=== PATIENT | female | born 1945 | race Caucasian/White ===

== ENCOUNTER 2019-09-23 12:48 | Inpatient (IN) | payer MEDICARE, BC ==
[~2019-09-23] VITALS: Ht 154.9 cm; Wt 55.1 kg
--- NOTE | 2019-09-23 00:20 | NUR ---
Entered patient room and found patient to be unresponsive. with an SPO2 of 80. Rapid response was called. Patient had been using Bipap, but it was not on correctly. RT had been in the room a few minutes earlier to draw ABG's. BIPAP was set to 14/6 at 12 per minute. RT increased to 22/8 at 20 per minute at 35%. SPO2 gradually increased to 91. dentures were removed to facilitate breathing. patient was still unresponsive. John was notified and decision was made to move patient to ICU where intubation occured. No meds were given by the patient's nurse prior to the rapid.
[~2019-09-23 12:48] MED LIST: ALPR0.5T PO; ASCO1TAB5 PO; ESCITALOPRAM OXA5 M1 PO; METO-269 PO; SIMV40TA18 PO
[2019-09-23 13:42] VITALS: BP 177/79
[2019-09-23] MEDS ORDERED: ALBUTEROL SULFATE 2.5 MG/3 ML NEBU. NEB PRN (14:30)
[2019-09-23 15:29] LABS: BASE EXCESS ABG 10 mmol/L (-3-3); HCO3 ABG 41 mmol/L (21-28); PO2 ABG 65 mmHg (65-108); SAT O2 ABG 90 % (92-99)
[2019-09-23 15:36] LABS: FIO2 ABG 32; PCO2 ABG 86 mmHg (35-46)
[2019-09-23 15:54] VITALS: BP 126/79
[2019-09-23] MEDS: ALBUTEROL SULFATE 2.5 MG/3 ML NEBU. NEB SCH ×2 (16:00→19:28)
[2019-09-23 16:20] LABS: BASO % 1 % (0-3); EOS % 0 % (0-3); HEMATOCRIT 47.8 % (36.0-47.0); HEMOGLOBIN 15.4 g/dL (12.0-15.5); LYMPH # 0.7 x10^3/uL (1.0-4.8); LYMPH % 16 % (24-48); MEAN CORPUSCULAR HEMOGLOBIN 30 pg (25-35); MEAN CORPUSCULAR HGB CONC 32 g/dL (31-37); MEAN CORPUSCULAR VOLUME 93 fL (79-100); MONO # 0.6 x10^3/uL (0.0-1.1); MONO % 12 % (0-9); NEUT # 3.2 x10^3/uL (1.8-7.7); NEUT % 71 % (31-73); PLATELET COUNT 134 x10^3/uL (140-400); RED BLOOD COUNT 5.13 x10^6/uL (3.50-5.40); RED CELL DISTRIBUTION WIDTH 15.5 % (11.5-14.5); WHITE BLOOD COUNT 4.5 x10^3/uL (4.0-11.0)
[2019-09-23 16:29] LABS: CALCIUM 8.7 mg/dL (8.5-10.1); CREATININE 0.5 mg/dL (0.6-1.0); GFR 120.6; POTASSIUM 4.3 mmol/L (3.5-5.1)
[2019-09-23] MEDS: methylPREDNISolone SOD SUCC PF 125 MG/2 ML VIAL. IV SCH ×2 (16:30→21:00)
[2019-09-23 16:31] LABS: PROTHROMBIN TIME PATIENT 13.6 SEC (11.7-14.0)
--- NOTE | 2019-09-23 16:31 | PDOC ---
PULMONARY PROGRESS NOTES Vitals Vital Signs Date Time Temp Pulse Resp B/P (MAP) Pulse Ox O2 Delivery O2 Flow Rate FiO2 09/23/19 16:15 95 Nasal Cannula 3.0 09/23/19 15:54 98.3 65 20 126/79 (95) 98.3 Labs Laboratory Tests Test 09/23/19 15:05 09/23/19 16:15 O2 Saturation 90 % (92-99) Arterial Blood pH 7.29 (7.35-7.45) Arterial Blood pCO2 at Patient Temp 86 mmHg (35-46) Arterial Blood pO2 at Patient Temp 65 mmHg (65-108) Arterial Blood HCO3 41 mmol/L (21-28) Arterial Blood Base Excess 10 mmol/L (-3-3) FiO2 32 White Blood Count 4.5 x10^3/uL (4.0-11.0) Red Blood Count 5.13 x10^6/uL (3.50-5.40) Hemoglobin 15.4 g/dL (12.0-15.5) Hematocrit 47.8 % (36.0-47.0) Mean Corpuscular Volume 93 fL (79-100) Mean Corpuscular Hemoglobin 30 pg (25-35) Mean Corpuscular Hemoglobin Concent 32 g/dL (31-37) Red Cell Distribution Width 15.5 % (11.5-14.5) Platelet Count 134 x10^3/uL (140-400) Neutrophils (%) (Auto) 71 % (31-73) Lymphocytes (%) (Auto) 16 % (24-48) Monocytes (%) (Auto) 12 % (0-9) Eosinophils (%) (Auto) 0 % (0-3) Basophils (%) (Auto) 1 % (0-3) Neutrophils # (Auto) 3.2 x10^3/uL (1.8-7.7) Lymphocytes # (Auto) 0.7 x10^3/uL (1.0-4.8) Monocytes # (Auto) 0.6 x10^3/uL (0.0-1.1) Eosinophils # (Auto) 0.0 x10^3/uL (0.0-0.7) Basophils # (Auto) 0.0 x10^3/uL (0.0-0.2) Sodium Level 134 mmol/L (136-145) Potassium Level 4.3 mmol/L (3.5-5.1) Chloride Level 93 mmol/L (98-107) Carbon Dioxide Level 40 mmol/L (21-32) Anion Gap 1 (6-14) Blood Urea Nitrogen 10 mg/dL (7-20) Creatinine 0.5 mg/dL (0.6-1.0) Estimated GFR (Cockcroft-Gault) 120.6 Glucose Level 126 mg/dL (70-99) Calcium Level 8.7 mg/dL (8.5-10.1) Laboratory Tests Test 09/23/19 15:05 09/23/19 16:15 O2 Saturation 90 % (92-99) Arterial Blood pH 7.29 (7.35-7.45) Arterial Blood pCO2 at Patient Temp 86 mmHg (35-46) Arterial Blood pO2 at Patient Temp 65 mmHg (65-108) Arterial Blood HCO3 41 mmol/L (21-28) Arterial Blood Base Excess 10 mmol/L (-3-3) FiO2 32 White Blood Count 4.5 x10^3/uL (4.0-11.0) Red Blood Count 5.13 x10^6/uL (3.50-5.40) Hemoglobin 15.4 g/dL (12.0-15.5) Hematocrit 47.8 % (36.0-47.0) Mean Corpuscular Volume 93 fL (79-100) Mean Corpuscular Hemoglobin 30 pg (25-35) Mean Corpuscular Hemoglobin Concent 32 g/dL (31-37) Red Cell Distribution Width 15.5 % (11.5-14.5) Platelet Count 134 x10^3/uL (140-400) Neutrophils (%) (Auto) 71 % (31-73) Lymphocytes (%) (Auto) 16 % (24-48) Monocytes (%) (Auto) 12 % (0-9) Eosinophils (%) (Auto) 0 % (0-3) Basophils (%) (Auto) 1 % (0-3) Neutrophils # (Auto) 3.2 x10^3/uL (1.8-7.7) Lymphocytes # (Auto) 0.7 x10^3/uL (1.0-4.8) Monocytes # (Auto) 0.6 x10^3/uL (0.0-1.1) Eosinophils # (Auto) 0.0 x10^3/uL (0.0-0.7) Basophils # (Auto) 0.0 x10^3/uL (0.0-0.2) Sodium Level 134 mmol/L (136-145) Potassium Level 4.3 mmol/L (3.5-5.1) Chloride Level 93 mmol/L (98-107) Carbon Dioxide Level 40 mmol/L (21-32) Anion Gap 1 (6-14) Blood Urea Nitrogen 10 mg/dL (7-20) Creatinine 0.5 mg/dL (0.6-1.0) Estimated GFR (Cockcroft-Gault) 120.6 Glucose Level 126 mg/dL (70-99) Calcium Level 8.7 mg/dL (8.5-10.1) Medications Active Scripts Medications Dose Route/Sig Max Daily Dose Days Date Category Xanax (Alprazolam) 0.5 Mg Tablet 1 Tab PO PRN TID PRN 09/10/18 Reported Kya-C 1,000 Mg Tablet (Ascorbate Calcium/Bioflavonoid) 1 Each Tablet 1 Each PO DAILY 09/10/18 Reported Simvastatin 40 Mg Tablet 1 Tab PO QHS 09/10/18 Reported Toprol Xl (Metoprolol Succinate) 50 Mg Tab.er.24h 50 Mg PO BID 09/10/18 Reported Escitalopram Oxalate 5 Mg Tablet 5 Mg PO QHS 09/10/18 Reported Impression . NOTE DICTATED A/C HYPERCAPNEA RESP FAILURE SEE ORDERS MARIAN WHELAN MD Sep 23, 2019 16:31
[2019-09-23 16:34] LABS: D-DIMER 0.33 ug/mlFEU (0.00-0.50)
[2019-09-23] MEDS ORDERED: IOHEXOL 350 MG/ML 100 ML VIAL. ONE (16:52)
[2019-09-23] MEDS ORDERED: IOHEXOL 350 MG/ML 100 ML VIAL. IV ONE (17:00)
[2019-09-23] MEDS ORDERED: CONTRAST GIVEN. MC PRN (17:00)
--- NOTE | 2019-09-23 18:21 | RAD ---
PQRS Compliance Statement: One or more of the following individualized dose reduction techniques were utilized for this examination: 1. Automated exposure control 2. Adjustment of the mA and/or kV according to patient size 3. Use of iterative reconstruction technique CT CHEST WITH CONTRAST, PULMONARY ANGIOGRAM History: Shortness of air, possible emphysema. Comparison: None. Technique: Helical CT of the chest was performed after the administration of 75 cc of Omnipaque 350 intravenous contrast according to PE protocol. Axial and coronal reconstructions were obtained. 3-D MIP images were constructed to better evaluate the pulmonary arteries. Findings: Pulmonary arteries are adequately opacified. There is no evidence of pulmonary embolism. Pulmonary trunk is dilated measuring 3.6 cm. No thoracic aortic dissection. Moderate atherosclerotic calcification of the aorta. There is coronary artery disease. There is probably moderate narrowing at the origin of the left subclavian artery. There is marked thyromegaly. Slight substernal extension. The right thyroid lobe is heterogeneous. There is cardiomegaly, no pericardial effusion. There is no pleural effusion. There are retained secretions or mucous in the trachea and bilateral mainstem bronchi. Left apical calcified granuloma. There is mild centrilobular emphysema. There is a soft tissue density nodule with slightly irregular margins measuring 7 mm in the right upper lobe, image 41. There is consolidation with a few air bronchograms in the posterior right lower lobe. There is basilar right lower lobe peribronchial thickening that is mild. Much smaller consolidation and groundglass opacities are seen in the posterior left lower lobe. Scarring or atelectasis in the inferior lingula is minimal. Small cyst or hemangioma in the right hepatic lobe is noted. A hypodensity in the upper pole the right kidney is incompletely characterized. Degenerative spondylosis of the thoracic spine. Increased AP diameter of the chest. IMPRESSION: 1. There is no CT evidence of pulmonary embolus. 2. Moderate right lower lobe and mild left lower lobe posterior consolidations. Considerations include pneumonia, aspiration, or atelectasis. 3. There is a 7 mm solid nodule in the right upper lobe. This nodule has irregular margins and is suspicious. Recommend CT chest follow-up in 3 months. 4. Pulmonary trunk is dilated suggesting pulmonary arterial hypertension. 5. Marked thyromegaly, suggest outpatient thyroid ultrasound if not previously evaluated. 6. Mild centrilobular emphysema. 7. Cardiomegaly. Electronically signed by: Иван Stapleton MD (09/23/2019 6:09 PM) [facility]
[2019-09-23 18:24] LABS: BARBITURATES NEG (NEG); BENZODIAZEPINES NEG (NEG); CANNABINOIDS NEG (NEG); COCAINE NEG (NEG); METHADONE NEG (NEG); OPIATES NEG (NEG); PHENCYCLIDINE NEG (NEG)
[2019-09-23 18:26] LABS: AMPHETAMINE/METHAMPHETAMINE NEG (NEG)
[2019-09-23 19:14] VITALS: BP 137/66
[2019-09-23] MEDS ORDERED: ESCITALOPRAM OXA5 M1 PO (19:25)
[2019-09-23] MEDS ORDERED: METO100T5 PO (19:25)
[2019-09-23] MEDS ORDERED: VALS1TAB18 PO (19:25)
[2019-09-23] MEDS ORDERED: AMLO5TAB10 PO (19:29)
[2019-09-23] MEDS: CITALOPRAM 20 MG TABLET. PO SCH (21:00)
[2019-09-23] MEDS: ATORVASTATIN CALCIUM 20 MG TABLET PO SCH (21:00)
--- NOTE | 2019-09-23 23:05 | CONS ---
DATE OF CONSULTATION: 09/23/2019 REASON FOR CONSULTATION: The patient seen in pulmonary consultation at the request of Dr. Ritchie for abnormal arterial blood gas revealing a pH of 7.29, PaCO2 of 86, pO2 of 65, pCO2 of 41, currently on 3 liters. HISTORY OF PRESENT ILLNESS: The patient is a 73-year-old that presented to her primary care doctors with increasing shortness of breath over the last month. Her family noted some lethargy, falling asleep easily. She does not wear oxygen at home. She smokes on and off. She claims as no one has ever told that she had COPD. No history of bronchitis. She does not use any metered-dose inhalers. She has a cough, mostly nonproductive. No fever, chills or night sweats. She had an arterial blood gas as indicated above. I was asked to see her in consultation. Chest x-ray was reviewed revealing some vascular congestion and emphysema does also have evidence of hyperinflation. PAST MEDICAL HISTORY: Remarkable for hypertension. No history of diabetes, myocardial infarction or previous COPD. ALLERGIES: IBUPROFEN. SOCIAL HISTORY: She denies any alcohol. She smokes on and off. She denies any xrhr-vjh-djszwcr sleeping aids. FAMILY HISTORY: No family history of lung disorders. REVIEW OF SYSTEMS: CONSTITUTIONAL: No fever or chills. EYES: No change in visual acuity. HEENT: No nasal congestion or sore throat. PULMONARY: As indicated above. CARDIOVASCULAR: No chest pain or pressure. GASTROINTESTINAL: No nausea, vomiting, diarrhea. GENITOURINARY: No dysuria or frequency. MUSCULOSKELETAL: No localized muscle aches or joint pains. SKIN: No new skin rashes. NEUROLOGIC: No headaches, diplopia or blurred vision. PHYSICAL EXAMINATION: VITAL SIGNS: A 73-year-old in no significant respiratory distress. She is awake, alert, following commands. HEENT: Eyes, the sclerae were nonicteric. NECK: Jugular venous distention was not elevated. CHEST: Hyperinflation. BACK: He had some major curvature of the back related to the osteopenia, osteoporosis. LUNGS: Poor airway flow with no wheezes. CARDIOVASCULAR: Regular rate and rhythm with S1, S2, no S3. ABDOMEN: Soft, nontender, nondistended. EXTREMITIES: No clubbing, cyanosis or edema. NEUROLOGICAL: The patient was awake, alert, following commands. A detailed neuro exam was not performed. LABORATORY DATA: Reviewed. White count was normal. Hemoglobin and hematocrit were noted. Arterial blood gases indicated above. IMPRESSION: 1. Icqog-dr-uepxiwq hypercapnic hypoxemic respiratory failure. 2. Acute exacerbation of chronic obstructive pulmonary disease. 3. Mild increased lung markings on chest x-ray compatible with venous congestion. 4. Suspect secondary pulmonary hypertension. 5. Tobacco-dependent. 6. Hypertension. 7. Anxiety. PLAN: I informed the family that her pCO2 is what is causing the patient to be lethargic and confused. I suspect this is related to an acute exacerbation of COPD along with her major thoracic and cervical curvature causing restrictive process leading to hypercapnia. I have noted that her bicarbonate is 41. This is somewhat of a chronic process. She denies taking any kbmt-tne-zwmbbog medications. We will check a urine drug screen. We will attempt BiPAP at bedtime. Dr. Ritchie, I do appreciate the privilege in sharing in patient's care. MARIAN WHELAN MD DR: MARTIN/jean claude JOB#: [id number] / [id number]
[2019-09-23 23:25] VITALS: BP 103/44
[2019-09-23 23:34] LABS: HCO3 ABG 37 mmol/L (21-28); PCO2 ABG 78 mmHg (35-46); PO2 ABG 52 mmHg (65-108)
[2019-09-23 23:35] LABS: SAT O2 ABG 84 % (92-99)
[2019-09-23 23:45] VITALS: BP 172/74
[2019-09-24] VITALS (27 sets, daily range): BP systolic 88–165; BP diastolic 47–73
--- NOTE | 2019-09-24 00:05 | NUR ---
Called to see patient for a rapid response. Nurse found patient to be unresponsive with a Sat of 79%. RT was called and the Bipap was repositioned on the patients face. An ABG was obtained and was only slight better than the one done in the ED earlier in the day. Patient was given a breathing treatment and bipap settings were changed per RT. Dr. Lopez was called and it was decided that if the family wanted her to be a full code then we would intubate her and move her to the ICU. Danya Rodríguez, Nursing Front Edger, called the patients and was told that the family wanted her to be a full code and to intubate her if needed. Patient was moved to the ICU and was intubated by Myke Claudio, the [facility] [employer] pharmacy operations manager. Patient was intubated with a #7 ETT, taped at 24 at the lip. An OG and a parkinson were both inserted. Pt is starting to move a little more but still is not responsive. Family is aware of the situation and will be in to see patient in the morning. Addendum: 09/24/19 at 0248 by SOPHIE TURNER RN Amended: Links added.
--- NOTE | 2019-09-24 00:30 | NUR ---
Patient arrived to room 114 via bed accompanied by 6S RN, ICU CN, RT, and nursing preparation supervisor freezing. Patient transferred to ICU bed and hooked up to ICU monitors. Patient SR on monitor, S1S2 heart tones heard, struggling to breathe with very little air flow heard through lungs, responsive to painful stimuli but not talking at this time, no IV present. Anesthesia paged to come intubate. Patient intubated by LABOR RELATIONS CONSULTANT at 0000 with 100 mg Propofol and 100 mg Succs, ETT 7.0 24 at lip. CXR and KUB orders entered to check placement. OG and parkinson catheter placed. New IV inserted. Versed for sedation. VSS at this time. Daughter updated on patient condition. This RN called 6S to talk with previous RN, 2100 medications not given--will give medications now via OG tube.
[2019-09-24] MEDS: MIDAZOLAM HCL 50 MG in IV NORMAL SALINE 50ML 50 ML IV PRN ×3 (00:37→16:01)
[2019-09-24] MEDS: IV DEXTROSE 5 %-0.45 % NACL 1,000 ML IV SCH ×2 (00:38→11:00)
--- NOTE | 2019-09-24 00:53 | RAD ---
CHEST AP ONLY INDICATION: Intubation. COMPARISON STUDY: 09/23/2019. FINDINGS: Endotracheal tube terminates 4 cm above the joe. Enteric tube terminates in the stomach. Lungs: Hyperextended lung volume. Stable prominent interstitial markings. Pleura: No pleural effusion or pneumothorax. Heart and Mediastinum: Cardiomegaly. Atherosclerotic thoracic aorta. IMPRESSION: 1. Endotracheal tube terminates 4 cm above the joe. Enteric tube terminates in the stomach. 2. Stable prominent interstitial markings. Electronically signed by: Jatinder Al MD (09/24/2019 12:50 AM) [facility]
[2019-09-24 01:32] LABS: BASE EXCESS ABG 7 mmol/L (-3-3); HCO3 ABG 34 mmol/L (21-28); PCO2 ABG 57 mmHg (35-46); PO2 ABG 80 mmHg (65-108); SAT O2 ABG 96 % (92-99)
[2019-09-24] MEDS: CITALOPRAM 20 MG TABLET. PO SCH ×2 (01:34→21:09)
[2019-09-24] MEDS: METOPROLOL SUCC 24HR ER 100 MG TAB.ER.24H. PO SCH ×3 (01:34→21:08)
[2019-09-24] MEDS: ATORVASTATIN CALCIUM 20 MG TABLET PO SCH ×2 (01:34→21:09)
[2019-09-24] MEDS: methylPREDNISolone SOD SUCC PF 125 MG/2 ML VIAL. IV SCH ×3 (01:35→21:08)
[2019-09-24 01:58] LABS: FIO2 ABG 50
[2019-09-24 07:41] LABS: BASO % 0 % (0-3); EOS % 0 % (0-3); HEMATOCRIT 48.8 % (36.0-47.0); HEMOGLOBIN 15.5 g/dL (12.0-15.5); LYMPH # 0.3 x10^3/uL (1.0-4.8); LYMPH % 14 % (24-48); MEAN CORPUSCULAR HEMOGLOBIN 29 pg (25-35); MEAN CORPUSCULAR HGB CONC 32 g/dL (31-37); MEAN CORPUSCULAR VOLUME 92 fL (79-100); MONO # 0.1 x10^3/uL (0.0-1.1); MONO % 5 % (0-9); NEUT # 1.7 x10^3/uL (1.8-7.7); NEUT % 80 % (31-73); PLATELET COUNT 130 x10^3/uL (140-400); RED BLOOD COUNT 5.29 x10^6/uL (3.50-5.40); RED CELL DISTRIBUTION WIDTH 15.6 % (11.5-14.5); WHITE BLOOD COUNT 2.1 x10^3/uL (4.0-11.0)
[2019-09-24 08:00] LABS: CALCIUM 8.8 mg/dL (8.5-10.1); CREATININE 0.5 mg/dL (0.6-1.0); GFR 120.6; POTASSIUM 3.9 mmol/L (3.5-5.1)
[2019-09-24] MEDS: ALBUTEROL SULFATE 2.5 MG/3 ML NEBU. NEB SCH ×4 (08:12→19:52)
[2019-09-24 08:35] LABS: BASE EXCESS ABG 9 mmol/L (-3-3); HCO3 ABG 32 mmol/L (21-28); PCO2 ABG 38 mmHg (35-46); PO2 ABG 93 mmHg (65-108); SAT O2 ABG 98 % (92-99)
--- NOTE | 2019-09-24 08:36 | PDOC ---
PULMONARY PROGRESS NOTES Subjective FAILED BIPAP NOW ON AC MODE VENT SEDATED Vitals Vital Signs Date Time Temp Pulse Resp B/P (MAP) Pulse Ox O2 Delivery O2 Flow Rate FiO2 09/24/19 08:12 99 Ventilator 09/24/19 08:00 97.9 62 20 111/60 (77) 97.9 09/23/19 19:33 3.0 ROS: No Nausea, No Chest Pain, No Abdominal Pain, No Increase Cough General: Alert Lungs: Crackles Cardiovascular: S1, S2 Abdomen: Soft Neuro Exam: Alert Extremities: No Edema Skin: Warm Labs Laboratory Tests Test 09/23/19 15:05 09/23/19 16:15 09/23/19 17:30 09/23/19 22:33 O2 Saturation 90 % (92-99) 84 % (92-99) Arterial Blood pH 7.29 (7.35-7.45) 7.30 (7.35-7.45) Arterial Blood pCO2 at Patient Temp 86 mmHg (35-46) 78 mmHg (35-46) Arterial Blood pO2 at Patient Temp 65 mmHg (65-108) 52 mmHg (65-108) Arterial Blood HCO3 41 mmol/L (21-28) 37 mmol/L (21-28) Arterial Blood Base Excess 10 mmol/L (-3-3) FiO2 32 White Blood Count 4.5 x10^3/uL (4.0-11.0) Red Blood Count 5.13 x10^6/uL (3.50-5.40) Hemoglobin 15.4 g/dL (12.0-15.5) Hematocrit 47.8 % (36.0-47.0) Mean Corpuscular Volume 93 fL (79-100) Mean Corpuscular Hemoglobin 30 pg (25-35) Mean Corpuscular Hemoglobin Concent 32 g/dL (31-37) Red Cell Distribution Width 15.5 % (11.5-14.5) Platelet Count 134 x10^3/uL (140-400) Neutrophils (%) (Auto) 71 % (31-73) Lymphocytes (%) (Auto) 16 % (24-48) Monocytes (%) (Auto) 12 % (0-9) Eosinophils (%) (Auto) 0 % (0-3) Basophils (%) (Auto) 1 % (0-3) Neutrophils # (Auto) 3.2 x10^3/uL (1.8-7.7) Lymphocytes # (Auto) 0.7 x10^3/uL (1.0-4.8) Monocytes # (Auto) 0.6 x10^3/uL (0.0-1.1) Eosinophils # (Auto) 0.0 x10^3/uL (0.0-0.7) Basophils # (Auto) 0.0 x10^3/uL (0.0-0.2) Prothrombin Time 13.6 SEC (11.7-14.0) Prothromb Time International Ratio 1.1 (0.8-1.1) Activated Partial Thromboplast Time 27 SEC (24-38) D-Dimer (Emily) 0.33 ug/mlFEU (0.00-0.50) Sodium Level 134 mmol/L (136-145) Potassium Level 4.3 mmol/L (3.5-5.1) Chloride Level 93 mmol/L (98-107) Carbon Dioxide Level 40 mmol/L (21-32) Anion Gap 1 (6-14) Blood Urea Nitrogen 10 mg/dL (7-20) Creatinine 0.5 mg/dL (0.6-1.0) Estimated GFR (Cockcroft-Gault) 120.6 Glucose Level 126 mg/dL (70-99) Calcium Level 8.7 mg/dL (8.5-10.1) Magnesium Level 2.0 mg/dL (1.8-2.4) Urine Opiates Screen Neg (NEG) Urine Methadone Screen Neg (NEG) Urine Barbiturates Neg (NEG) Urine Phencyclidine Screen Neg (NEG) Urine Amphetamine/Methamphetamine Neg (NEG) Urine Benzodiazepines Screen Neg (NEG) Urine Cocaine Screen Neg (NEG) Urine Cannabinoids Screen Neg (NEG) Urine Ethyl Alcohol Neg (NEG) Test 09/24/19 01:15 09/24/19 07:20 O2 Saturation 96 % (92-99) Arterial Blood pH 7.40 (7.35-7.45) Arterial Blood pCO2 at Patient Temp 57 mmHg (35-46) Arterial Blood pO2 at Patient Temp 80 mmHg (65-108) Arterial Blood HCO3 34 mmol/L (21-28) Arterial Blood Base Excess 7 mmol/L (-3-3) FiO2 50 White Blood Count 2.1 x10^3/uL (4.0-11.0) Red Blood Count 5.29 x10^6/uL (3.50-5.40) Hemoglobin 15.5 g/dL (12.0-15.5) Hematocrit 48.8 % (36.0-47.0) Mean Corpuscular Volume 92 fL (79-100) Mean Corpuscular Hemoglobin 29 pg (25-35) Mean Corpuscular Hemoglobin Concent 32 g/dL (31-37) Red Cell Distribution Width 15.6 % (11.5-14.5) Platelet Count 130 x10^3/uL (140-400) Neutrophils (%) (Auto) 80 % (31-73) Lymphocytes (%) (Auto) 14 % (24-48) Monocytes (%) (Auto) 5 % (0-9) Eosinophils (%) (Auto) 0 % (0-3) Basophils (%) (Auto) 0 % (0-3) Neutrophils # (Auto) 1.7 x10^3/uL (1.8-7.7) Lymphocytes # (Auto) 0.3 x10^3/uL (1.0-4.8) Monocytes # (Auto) 0.1 x10^3/uL (0.0-1.1) Eosinophils # (Auto) 0.0 x10^3/uL (0.0-0.7) Basophils # (Auto) 0.0 x10^3/uL (0.0-0.2) Sodium Level 133 mmol/L (136-145) Potassium Level 3.9 mmol/L (3.5-5.1) Chloride Level 95 mmol/L (98-107) Carbon Dioxide Level 36 mmol/L (21-32) Anion Gap 2 (6-14) Blood Urea Nitrogen 9 mg/dL (7-20) Creatinine 0.5 mg/dL (0.6-1.0) Estimated GFR (Cockcroft-Gault) 120.6 Glucose Level 140 mg/dL (70-99) Calcium Level 8.8 mg/dL (8.5-10.1) Laboratory Tests Test 09/23/19 15:05 09/23/19 16:15 09/23/19 17:30 09/23/19 22:33 O2 Saturation 90 % (92-99) 84 % (92-99) Arterial Blood pH 7.29 (7.35-7.45) 7.30 (7.35-7.45) Arterial Blood pCO2 at Patient Temp 86 mmHg (35-46) 78 mmHg (35-46) Arterial Blood pO2 at Patient Temp 65 mmHg (65-108) 52 mmHg (65-108) Arterial Blood HCO3 41 mmol/L (21-28) 37 mmol/L (21-28) Arterial Blood Base Excess 10 mmol/L (-3-3) FiO2 32 White Blood Count 4.5 x10^3/uL (4.0-11.0) Red Blood Count 5.13 x10^6/uL (3.50-5.40) Hemoglobin 15.4 g/dL (12.0-15.5) Hematocrit 47.8 % (36.0-47.0) Mean Corpuscular Volume 93 fL (79-100) Mean Corpuscular Hemoglobin 30 pg (25-35) Mean Corpuscular Hemoglobin Concent 32 g/dL (31-37) Red Cell Distribution Width 15.5 % (11.5-14.5) Platelet Count 134 x10^3/uL (140-400) Neutrophils (%) (Auto) 71 % (31-73) Lymphocytes (%) (Auto) 16 % (24-48) Monocytes (%) (Auto) 12 % (0-9) Eosinophils (%) (Auto) 0 % (0-3) Basophils (%) (Auto) 1 % (0-3) Neutrophils # (Auto) 3.2 x10^3/uL (1.8-7.7) Lymphocytes # (Auto) 0.7 x10^3/uL (1.0-4.8) Monocytes # (Auto) 0.6 x10^3/uL (0.0-1.1) Eosinophils # (Auto) 0.0 x10^3/uL (0.0-0.7) Basophils # (Auto) 0.0 x10^3/uL (0.0-0.2) Prothrombin Time 13.6 SEC (11.7-14.0) Prothromb Time International Ratio 1.1 (0.8-1.1) Activated Partial Thromboplast Time 27 SEC (24-38) D-Dimer (Emily) 0.33 ug/mlFEU (0.00-0.50) Sodium Level 134 mmol/L (136-145) Potassium Level 4.3 mmol/L (3.5-5.1) Chloride Level 93 mmol/L (98-107) Carbon Dioxide Level 40 mmol/L (21-32) Anion Gap 1 (6-14) Blood Urea Nitrogen 10 mg/dL (7-20) Creatinine 0.5 mg/dL (0.6-1.0) Estimated GFR (Cockcroft-Gault) 120.6 Glucose Level 126 mg/dL (70-99) Calcium Level 8.7 mg/dL (8.5-10.1) Magnesium Level 2.0 mg/dL (1.8-2.4) Urine Opiates Screen Neg (NEG) Urine Methadone Screen Neg (NEG) Urine Barbiturates Neg (NEG) Urine Phencyclidine Screen Neg (NEG) Urine Amphetamine/Methamphetamine Neg (NEG) Urine Benzodiazepines Screen Neg (NEG) Urine Cocaine Screen Neg (NEG) Urine Cannabinoids Screen Neg (NEG) Urine Ethyl Alcohol Neg (NEG) Test 09/24/19 01:15 09/24/19 07:20 O2 Saturation 96 % (92-99) Arterial Blood pH 7.40 (7.35-7.45) Arterial Blood pCO2 at Patient Temp 57 mmHg (35-46) Arterial Blood pO2 at Patient Temp 80 mmHg (65-108) Arterial Blood HCO3 34 mmol/L (21-28) Arterial Blood Base Excess 7 mmol/L (-3-3) FiO2 50 White Blood Count 2.1 x10^3/uL (4.0-11.0) Red Blood Count 5.29 x10^6/uL (3.50-5.40) Hemoglobin 15.5 g/dL (12.0-15.5) Hematocrit 48.8 % (36.0-47.0) Mean Corpuscular Volume 92 fL (79-100) Mean Corpuscular Hemoglobin 29 pg (25-35) Mean Corpuscular Hemoglobin Concent 32 g/dL (31-37) Red Cell Distribution Width 15.6 % (11.5-14.5) Platelet Count 130 x10^3/uL (140-400) Neutrophils (%) (Auto) 80 % (31-73) Lymphocytes (%) (Auto) 14 % (24-48) Monocytes (%) (Auto) 5 % (0-9) Eosinophils (%) (Auto) 0 % (0-3) Basophils (%) (Auto) 0 % (0-3) Neutrophils # (Auto) 1.7 x10^3/uL (1.8-7.7) Lymphocytes # (Auto) 0.3 x10^3/uL (1.0-4.8) Monocytes # (Auto) 0.1 x10^3/uL (0.0-1.1) Eosinophils # (Auto) 0.0 x10^3/uL (0.0-0.7) Basophils # (Auto) 0.0 x10^3/uL (0.0-0.2) Sodium Level 133 mmol/L (136-145) Potassium Level 3.9 mmol/L (3.5-5.1) Chloride Level 95 mmol/L (98-107) Carbon Dioxide Level 36 mmol/L (21-32) Anion Gap 2 (6-14) Blood Urea Nitrogen 9 mg/dL (7-20) Creatinine 0.5 mg/dL (0.6-1.0) Estimated GFR (Cockcroft-Gault) 120.6 Glucose Level 140 mg/dL (70-99) Calcium Level 8.8 mg/dL (8.5-10.1) Medications Active Scripts Medications Dose Route/Sig Max Daily Dose Days Date Category Xanax (Alprazolam) 0.5 Mg Tablet 1 Tab PO PRN TID PRN 09/10/18 Reported Kya-C 1,000 Mg Tablet (Ascorbate Calcium/Bioflavonoid) 1 Each Tablet 1 Each PO DAILY 09/10/18 Reported Simvastatin 40 Mg Tablet 1 Tab PO QHS 09/10/18 Reported Toprol Xl (Metoprolol Succinate) 50 Mg Tab.er.24h 50 Mg PO BID 09/10/18 Reported Escitalopram Oxalate 5 Mg Tablet 5 Mg PO QHS 09/10/18 Reported Impression . IMPRESSION: 1. Fdujv-nx-dgzbmvf hypercapnic hypoxemic respiratory failure. 2. Acute exacerbation of chronic obstructive pulmonary disease. 3. Mild increased lung markings on chest x-ray compatible with venous congestion. 4. Suspect secondary pulmonary hypertension. 5. Tobacco-dependent. 6. Hypertension. 7. Anxiety. 8. POSSIBLE PNEUMONIA PLAN: I informed the family that her pCO2 is what is causing the patient to be lethargic and confused. I suspect this is related to an acute exacerbation of COPD along with her major thoracic and cervical curvature causing restrictive process leading to hypercapnia. I have noted that her bicarbonate is 41. This is somewhat of a chronic process. She denies taking any lbpi-auj-jbkithf medications. We will check a urine drug screen. We will attempt BiPAP at bedtime. Dr. Ritchie, I do appreciate the privilege in sharing in patient's care. Plan . FAILED BIPAP INTUBATED 09/23 ANTI BX WILL NEED VENT FOR NEXT 48-96 HOURS, D/W FAMILY STEROIDS NEBS START TUBE FEEDING MARIAN WHELAN MD Sep 24, 2019 08:36
[2019-09-24 08:37] LABS: FIO2 ABG 50
[2019-09-24] MEDS ORDERED: VALSARTAN PO SCH (09:00)
[2019-09-24] MEDS: LOSARTAN POTASSIUM 50 MG TABLET. PO SCH (09:00)
[2019-09-24] MEDS ORDERED: HYDROCHLOROTHIAZIDE PO SCH (09:00)
[2019-09-24] MEDS: ASCORBIC ACID 500 MG TABLET PO SCH (09:01)
[2019-09-24] MEDS: amLODIPine BESYLATE 5 MG TABLET PO SCH (09:01)
[2019-09-24] MEDS: hydroCHLOROthiazide 12.5 MG CAPSULE PO SCH (09:01)
--- NOTE | 2019-09-24 10:10 | NUR ---
SS following for discharge planning. SS reviewed pt chart. Pt is from home with spouse and is currently on the vent. SS will continue to follow for discharge planning.
[2019-09-24 10:21] LABS: FREE T4 1.1 ng/dL (0.76-1.46); THYROID STIM HORMONE (TSH) 0.375 uIU/mL (0.358-3.74)
--- NOTE | 2019-09-24 10:35 | PN ---
DATE: 09/24/2019 SUBJECTIVE: The patient continued to be sedated, intubated and mechanically ventilated. OBJECTIVE: GENERAL: When I examined her this morning, there was no pallor, jaundice, cyanosis, or thyromegaly. No jugular venous distension. No limb edema. VITAL SIGNS: Her heart rate was 62, blood pressure was 111/60, temperature was 97.9, respiratory rate was 20, and oxygen saturation was 98% on FiO2 of 50%. HEAD, EYES, EARS, NOSE AND THROAT: Showed normocephalic, atraumatic. She has an orotracheal and orogastric tube in place. NECK: Supple. HEART: Showed normal first and second heart sounds. No gallop or murmur. CHEST: Clear to auscultation. No crepitation or rhonchi. ABDOMEN: Distended, soft, nontender. NEUROLOGIC: She was sedated. LABORATORY DATA: Her lab work this morning showed a white cell count of 2100, hemoglobin 15.5, hematocrit 49, MCV 92 and platelet count of 130,000 with normal manual differential. Her blood gases this morning showed a pH of 7.4, pCO2 of 57, pO2 80, bicarbonate 34 and oxygen saturation was 96% on FiO2 of 50%. Her chemistry showed a serum sodium 133, potassium 3.9, chloride 95, bicarbonate 36, anion gap of 2, BUN 9, creatinine 0.5, estimated GFR was 120 mL per minute. Her glucose 140, calcium was 8.8, magnesium 2. ASSESSMENT: 1. Acute on chronic hypoxic hypercapnic respiratory failure. 2. Chronic obstructive pulmonary disease exacerbation. 3. Restrictive lung disease due to kyphoscoliosis. 4. Hypertension. 5. Hypothyroidism, although the daughter said that she was taken off her thyroid medication. PLAN: My plan is to start her on antibiotic. CT scan of the chest showed that there is moderate right lower lobe and mild left lower lobe posterior consolidation, consideration including pneumonia, aspiration or atelectasis. Meanwhile, we will continue with bronchodilator, steroids as well as all her other medications. I will discontinue the hydrochlorothiazide for now. I will also check her T3, T4, free T4 and TSH. MARILYN BURDEN MD DR: JUAN/jean claude JOB#: [id number] / [id number]
--- NOTE | 2019-09-24 12:42 | HP ---
ADMIT DATE: 09/23/2019 HISTORY OF PRESENT ILLNESS: The patient is a 73-year-old female patient who was apparently seen yesterday at her primary care physician's office, Esa Moore who contacted me stating that the patient is complaining of increasing shortness of breath over the last month. Her family noted she is very lethargic, falls asleep easily. She has never been on oxygen at home. She smokes on and off and her oxygen saturation there was only 75% on room air. I actually tried to convince them to go to the Emergency Room or be admitted to [facility], but he stated that they wanted to come to the [facility]. In fact, she was brought here by her daughter in her own car and by the time she arrived here, we did blood gas immediately and they showed that her pH was 7.29, pCO2 of 86, her pO2 of 65 and bicarbonate was 41, oxygen saturation was 90% on FiO2 of 32%. She was given Solu-Medrol 125 mg IV stat and started on nebulized treatment as well as BiPAP. I did consult Dr. Lopez to assist with her management. PAST MEDICAL HISTORY: Significant for hypertension. Her daughter said she was diagnosed before with hypothyroidism, but she was taken off her thyroid medication. PAST SURGICAL HISTORY: Significant for right knee surgery. ALLERGIES: SHE IS ALLERGIC TO IBUPROFEN. FAMILY HISTORY: Noncontributory. SOCIAL HISTORY: She is , has 1 daughter and 3 sons. She continued to smoke on and off, does not drink alcohol or use any recreational drugs. She has not been on any narcotics before. She does have also severe osteoporosis and osteoarthritis with marked kyphoscoliosis. REVIEW OF SYSTEMS: As per history of present illness. PHYSICAL EXAMINATION: GENERAL: On arrival to the hospital yesterday, there was no pallor, jaundice, cyanosis or thyromegaly. No jugular venous distention. No lower limb edema. VITAL SIGNS: Her heart rate was 76, blood pressure was 177/79, temperature was 98, respiratory rate was 22 and oxygen saturation was 90% on 2 liters of oxygen. She was only 75% on room air, according to her primary care physician. HEAD, EYES, EARS, NOSE AND THROAT: Normocephalic, atraumatic. NECK: Supple. HEART: Showed normal first and second heart sounds. No gallop or murmur. CHEST: Showed central trachea, equally reduced expansion, reduced air entry, vesicular sounds. No crepitation or rhonchi. ABDOMEN: Distended, soft, nontender. NEUROLOGIC: She was apparently lethargic, but arousable. All cranial nerves intact. EXTREMITIES: She moves extremities without difficulty. LABORATORY DATA: We did lab work that included white cell count 4500, hemoglobin 15.4, hematocrit 47.8, MCV 93, and platelet count of 134,000. Her prothrombin time was 15.6, INR 1.1, aPTT was 27 and D-dimer was 0.33. Her chemistry showed a serum sodium 134, potassium 4.3, chloride 93, bicarbonate 40, anion gap of 1, BUN of 10, creatinine 0.5, estimated GFR was 120 mL per minute. Her glucose was 126, calcium was 8.7, magnesium 2. Her toxic screen was essentially negative. She has had a CT scan of the chest, which showed that there is no evidence of pulmonary embolus. She has moderate right lower lobe and mild left lower lobe posterior consolidation. Consideration includes pneumonia, aspiration and atelectasis. There is 7 mm solid nodule in the right upper lobe. This nodule has irregular margin and is suspicious. Recommend CT chest follow up in 3 months. Pulmonary trunk is dilated suggesting pulmonary arterial hypertension. She has marked thyromegaly and radiologist suggested outpatient thyroid ultrasound if not previously evaluated. She has mild centrilobular emphysema and cardiomegaly. ASSESSMENT AND PLAN: The patient was admitted with a diagnosis of acute hypoxic hypercapnic respiratory failure, chronic obstructive pulmonary disease exacerbation as well as restrictive lung disease due to kyphosis, hypertension and questionable hypothyroidism, osteoporosis and osteoarthritis. We did start her on Solu-Medrol and nebulized albuterol and Atrovent together with BiPAP machine. We did consult the biological plant operator. Apparently, she was rapidly responded yesterday and she was unresponsive around 2250 and the nursing staff spoke with the about intubation and if he wants her coded due to she is not responding and requiring more oxygen ____ for 1-2 days or longer depends on the patient's condition that should be on a ventilator machine to breathe for her. Spouse is okay with intubation. The patient was transferred to ICU, was intubated and mechanical ventilation was started, also on Versed for sedation. MARILYN BURDEN MD DR: Junior JOB#: [id number] / [id number]
[2019-09-24 18:09] LABS: THYROXINE 6.8 ug/dL (4.5-12.0)
[2019-09-25] VITALS (28 sets, daily range): BP systolic 76–158; BP diastolic 36–70
[2019-09-25] MEDS: MIDAZOLAM HCL 50 MG in IV NORMAL SALINE 50ML 50 ML IV PRN (00:27)
[2019-09-25 04:04] LABS: HEMOGLOBIN 14.9 g/dL (12.0-15.5); RED BLOOD COUNT 5.09 x10^6/uL (3.50-5.40); RED CELL DISTRIBUTION WIDTH 15.6 % (11.5-14.5); WHITE BLOOD COUNT 5.2 x10^3/uL (4.0-11.0)
[2019-09-25] MEDS: IV DEXTROSE 5 %-0.45 % NACL 1,000 ML IV SCH ×4 (04:08→18:08)
[2019-09-25 04:14] LABS: ALBUMIN 2.6 g/dL (3.4-5.0); CALCIUM 8.5 mg/dL (8.5-10.1); CREATININE 0.6 mg/dL (0.6-1.0); GFR 97.7; POTASSIUM 3.4 mmol/L (3.5-5.1); TOTAL BILIRUBIN 0.4 mg/dL (0.2-1.0); TOTAL PROTEIN 5.2 g/dL (6.4-8.2)
[2019-09-25] MEDS: ALBUTEROL SULFATE 2.5 MG/3 ML NEBU. NEB SCH ×4 (08:02→20:25)
[2019-09-25 08:22] LABS: BASE EXCESS ABG 6 mmol/L (-3-3); HCO3 ABG 32 mmol/L (21-28); PCO2 ABG 49 mmHg (35-46); PO2 ABG 83 mmHg (65-108); SAT O2 ABG 96 % (92-99)
[2019-09-25 08:23] LABS: FIO2 ABG 40
[2019-09-25] MEDS ORDERED: fentaNYL PF VIAL 100 MCG/2 ML VIAL ONE ×2 (08:57→08:58)
[2019-09-25] MEDS ORDERED: fentaNYL PF VIAL 100 MCG/2 ML VIAL IVP PRN (09:00)
--- NOTE | 2019-09-25 09:04 | RAD ---
EXAM: CHEST 1 VIEW History: Respiratory failure COMPARISON: 09/24/2019 TECHNIQUE: Single portable radiograph of the chest FINDINGS: Mild cardiomegaly. ET tube, feeding tube is identified. Mild prominent bilateral interstitial lung markings likely mild congestive changes or interstitial infiltrates. Trace left pleural effusion. IMPRESSION: 1. Mild congestive changes or interstitial infiltrates, unchanged. Electronically signed by: Ra Madrigal MD (09/25/2019 9:01 AM) [facility]
[2019-09-25] MEDS: methylPREDNISolone SOD SUCC PF 125 MG/2 ML VIAL. IV SCH ×2 (09:07→21:48)
[2019-09-25] MEDS: hydroCHLOROthiazide 12.5 MG CAPSULE PO SCH (09:08)
[2019-09-25] MEDS: LOSARTAN POTASSIUM 50 MG TABLET. PO SCH (09:08)
[2019-09-25] MEDS: amLODIPine BESYLATE 5 MG TABLET PO SCH (09:09)
[2019-09-25] MEDS: METOPROLOL SUCC 24HR ER 100 MG TAB.ER.24H. PO SCH ×2 (09:09→21:00)
[2019-09-25] MEDS: ASCORBIC ACID 500 MG TABLET PO SCH (09:09)
--- NOTE | 2019-09-25 10:39 | PDOC ---
PULMONARY PROGRESS NOTES Subjective remains on vent at 40%, nursing reports no overnight event, minimal secretions Vitals Vital Signs Date Time Temp Pulse Resp B/P (MAP) Pulse Ox O2 Delivery O2 Flow Rate FiO2 09/25/19 10:11 12 96 Ventilator 40.0 09/25/19 09:09 57 135/59 09/25/19 04:00 97.8 97.8 Comments intubated/sedated Lungs: Crackles Cardiovascular: S1, S2 Abdomen: Soft Neuro Exam: Alert Extremities: No Edema Skin: Warm, Dry Labs Laboratory Tests Test 09/23/19 15:05 09/23/19 16:15 09/23/19 17:30 09/23/19 22:33 O2 Saturation 90 % (92-99) 84 % (92-99) Arterial Blood pH 7.29 (7.35-7.45) 7.30 (7.35-7.45) Arterial Blood pCO2 at Patient Temp 86 mmHg (35-46) 78 mmHg (35-46) Arterial Blood pO2 at Patient Temp 65 mmHg (65-108) 52 mmHg (65-108) Arterial Blood HCO3 41 mmol/L (21-28) 37 mmol/L (21-28) Arterial Blood Base Excess 10 mmol/L (-3-3) FiO2 32 White Blood Count 4.5 x10^3/uL (4.0-11.0) Red Blood Count 5.13 x10^6/uL (3.50-5.40) Hemoglobin 15.4 g/dL (12.0-15.5) Hematocrit 47.8 % (36.0-47.0) Mean Corpuscular Volume 93 fL (79-100) Mean Corpuscular Hemoglobin 30 pg (25-35) Mean Corpuscular Hemoglobin Concent 32 g/dL (31-37) Red Cell Distribution Width 15.5 % (11.5-14.5) Platelet Count 134 x10^3/uL (140-400) Neutrophils (%) (Auto) 71 % (31-73) Lymphocytes (%) (Auto) 16 % (24-48) Monocytes (%) (Auto) 12 % (0-9) Eosinophils (%) (Auto) 0 % (0-3) Basophils (%) (Auto) 1 % (0-3) Neutrophils # (Auto) 3.2 x10^3/uL (1.8-7.7) Lymphocytes # (Auto) 0.7 x10^3/uL (1.0-4.8) Monocytes # (Auto) 0.6 x10^3/uL (0.0-1.1) Eosinophils # (Auto) 0.0 x10^3/uL (0.0-0.7) Basophils # (Auto) 0.0 x10^3/uL (0.0-0.2) Prothrombin Time 13.6 SEC (11.7-14.0) Prothromb Time International Ratio 1.1 (0.8-1.1) Activated Partial Thromboplast Time 27 SEC (24-38) D-Dimer (Emily) 0.33 ug/mlFEU (0.00-0.50) Sodium Level 134 mmol/L (136-145) Potassium Level 4.3 mmol/L (3.5-5.1) Chloride Level 93 mmol/L (98-107) Carbon Dioxide Level 40 mmol/L (21-32) Anion Gap 1 (6-14) Blood Urea Nitrogen 10 mg/dL (7-20) Creatinine 0.5 mg/dL (0.6-1.0) Estimated GFR (Cockcroft-Gault) 120.6 Glucose Level 126 mg/dL (70-99) Calcium Level 8.7 mg/dL (8.5-10.1) Magnesium Level 2.0 mg/dL (1.8-2.4) Urine Opiates Screen Neg (NEG) Urine Methadone Screen Neg (NEG) Urine Barbiturates Neg (NEG) Urine Phencyclidine Screen Neg (NEG) Urine Amphetamine/Methamphetamine Neg (NEG) Urine Benzodiazepines Screen Neg (NEG) Urine Cocaine Screen Neg (NEG) Urine Cannabinoids Screen Neg (NEG) Urine Ethyl Alcohol Neg (NEG) Test 09/24/19 01:15 09/24/19 07:20 09/24/19 08:25 09/25/19 03:00 O2 Saturation 96 % (92-99) 98 % (92-99) Arterial Blood pH 7.40 (7.35-7.45) 7.54 (7.35-7.45) Arterial Blood pCO2 at Patient Temp 57 mmHg (35-46) 38 mmHg (35-46) Arterial Blood pO2 at Patient Temp 80 mmHg (65-108) 93 mmHg (65-108) Arterial Blood HCO3 34 mmol/L (21-28) 32 mmol/L (21-28) Arterial Blood Base Excess 7 mmol/L (-3-3) 9 mmol/L (-3-3) FiO2 50 50 White Blood Count 2.1 x10^3/uL (4.0-11.0) 5.2 x10^3/uL (4.0-11.0) Red Blood Count 5.29 x10^6/uL (3.50-5.40) 5.09 x10^6/uL (3.50-5.40) Hemoglobin 15.5 g/dL (12.0-15.5) 14.9 g/dL (12.0-15.5) Hematocrit 48.8 % (36.0-47.0) 47.0 % (36.0-47.0) Mean Corpuscular Volume 92 fL (79-100) 92 fL (79-100) Mean Corpuscular Hemoglobin 29 pg (25-35) 29 pg (25-35) Mean Corpuscular Hemoglobin Concent 32 g/dL (31-37) 32 g/dL (31-37) Red Cell Distribution Width 15.6 % (11.5-14.5) 15.6 % (11.5-14.5) Platelet Count 130 x10^3/uL (140-400) 116 x10^3/uL (140-400) Neutrophils (%) (Auto) 80 % (31-73) Lymphocytes (%) (Auto) 14 % (24-48) Monocytes (%) (Auto) 5 % (0-9) Eosinophils (%) (Auto) 0 % (0-3) Basophils (%) (Auto) 0 % (0-3) Neutrophils # (Auto) 1.7 x10^3/uL (1.8-7.7) Lymphocytes # (Auto) 0.3 x10^3/uL (1.0-4.8) Monocytes # (Auto) 0.1 x10^3/uL (0.0-1.1) Eosinophils # (Auto) 0.0 x10^3/uL (0.0-0.7) Basophils # (Auto) 0.0 x10^3/uL (0.0-0.2) Sodium Level 133 mmol/L (136-145) 136 mmol/L (136-145) Potassium Level 3.9 mmol/L (3.5-5.1) 3.4 mmol/L (3.5-5.1) Chloride Level 95 mmol/L (98-107) 98 mmol/L (98-107) Carbon Dioxide Level 36 mmol/L (21-32) 35 mmol/L (21-32) Anion Gap 2 (6-14) 3 (6-14) Blood Urea Nitrogen 9 mg/dL (7-20) 12 mg/dL (7-20) Creatinine 0.5 mg/dL (0.6-1.0) 0.6 mg/dL (0.6-1.0) Estimated GFR (Cockcroft-Gault) 120.6 97.7 Glucose Level 140 mg/dL (70-99) 158 mg/dL (70-99) Calcium Level 8.8 mg/dL (8.5-10.1) 8.5 mg/dL (8.5-10.1) Thyroid Stimulating Hormone (TSH) 0.375 uIU/mL (0.358-3.74) Free Thyroxine 1.10 ng/dL (0.76-1.46) Thyroxine (T4) 6.8 ug/dL (4.5-12.0) Total Triiodothyronine 78 ng/dL (71-180) BUN/Creatinine Ratio 20 (6-20) Total Bilirubin 0.4 mg/dL (0.2-1.0) Aspartate Amino Transf (AST/SGOT) 11 U/L (15-37) Alanine Aminotransferase (ALT/SGPT) 7 U/L (14-59) Alkaline Phosphatase 48 U/L (46-116) Total Protein 5.2 g/dL (6.4-8.2) Albumin 2.6 g/dL (3.4-5.0) Albumin/Globulin Ratio 1.0 (1.0-1.7) Test 09/25/19 08:20 O2 Saturation 96 % (92-99) Arterial Blood pH 7.42 (7.35-7.45) Arterial Blood pCO2 at Patient Temp 49 mmHg (35-46) Arterial Blood pO2 at Patient Temp 83 mmHg (65-108) Arterial Blood HCO3 32 mmol/L (21-28) Arterial Blood Base Excess 6 mmol/L (-3-3) FiO2 40 Laboratory Tests Test 09/25/19 03:00 09/25/19 08:20 White Blood Count 5.2 x10^3/uL (4.0-11.0) Red Blood Count 5.09 x10^6/uL (3.50-5.40) Hemoglobin 14.9 g/dL (12.0-15.5) Hematocrit 47.0 % (36.0-47.0) Mean Corpuscular Volume 92 fL (79-100) Mean Corpuscular Hemoglobin 29 pg (25-35) Mean Corpuscular Hemoglobin Concent 32 g/dL (31-37) Red Cell Distribution Width 15.6 % (11.5-14.5) Platelet Count 116 x10^3/uL (140-400) Sodium Level 136 mmol/L (136-145) Potassium Level 3.4 mmol/L (3.5-5.1) Chloride Level 98 mmol/L (98-107) Carbon Dioxide Level 35 mmol/L (21-32) Anion Gap 3 (6-14) Blood Urea Nitrogen 12 mg/dL (7-20) Creatinine 0.6 mg/dL (0.6-1.0) Estimated GFR (Cockcroft-Gault) 97.7 BUN/Creatinine Ratio 20 (6-20) Glucose Level 158 mg/dL (70-99) Calcium Level 8.5 mg/dL (8.5-10.1) Total Bilirubin 0.4 mg/dL (0.2-1.0) Aspartate Amino Transf (AST/SGOT) 11 U/L (15-37) Alanine Aminotransferase (ALT/SGPT) 7 U/L (14-59) Alkaline Phosphatase 48 U/L (46-116) Total Protein 5.2 g/dL (6.4-8.2) Albumin 2.6 g/dL (3.4-5.0) Albumin/Globulin Ratio 1.0 (1.0-1.7) O2 Saturation 96 % (92-99) Arterial Blood pH 7.42 (7.35-7.45) Arterial Blood pCO2 at Patient Temp 49 mmHg (35-46) Arterial Blood pO2 at Patient Temp 83 mmHg (65-108) Arterial Blood HCO3 32 mmol/L (21-28) Arterial Blood Base Excess 6 mmol/L (-3-3) FiO2 40 Medications Active Scripts Medications Dose Route/Sig Max Daily Dose Days Date Category Xanax (Alprazolam) 0.5 Mg Tablet 1 Tab PO PRN TID PRN 09/10/18 Reported Kya-C 1,000 Mg Tablet (Ascorbate Calcium/Bioflavonoid) 1 Each Tablet 1 Each PO DAILY 09/10/18 Reported Simvastatin 40 Mg Tablet 1 Tab PO QHS 09/10/18 Reported Toprol Xl (Metoprolol Succinate) 50 Mg Tab.er.24h 50 Mg PO BID 09/10/18 Reported Escitalopram Oxalate 5 Mg Tablet 5 Mg PO QHS 09/10/18 Reported Impression . IMPRESSION: 1. Gjmij-dc-scruwre hypercapnic hypoxemic respiratory failure. 2. Acute exacerbation of chronic obstructive pulmonary disease. 3. Mild increased lung markings on chest x-ray compatible with venous congestion. 4. Suspect secondary pulmonary hypertension. 5. Tobacco-dependent. 6. Hypertension. 7. Anxiety. 8. POSSIBLE PNEUMONIA CXR: FINDINGS: Mild cardiomegaly. ET tube, feeding tube is identified. Mild prominent bilateral interstitial lung markings likely mild congestive changes or interstitial infiltrates. Trace left pleural effusion. IMPRESSION:1. Mild congestive changes or interstitial infiltrates, unchanged. Plan . Failed BIPAP, required intubation on 09/23/19 NEBS/PRN suctioning will proceed early next week clinically not ready need to aim for PC02 60-65 d/w RT lasix ECHO cont. TF-- tolerating well steroids with taper DVT/GI PPX: PEPCID/Lovenox MARIAN WHELAN MD Sep 25, 2019 10:39
[2019-09-25] MEDS ORDERED: FUROSEMIDE 40 MG/4 ML VIAL. IVP ONE (10:45)
[2019-09-25] MEDS ORDERED: NALOXONE 0.4 MG/ML VIAL. IV PRN (10:45)
[2019-09-25] MEDS: PROPOFOL 100 ML IV PRN (11:06)
[2019-09-25] MEDS: FAMOTIDINE 20 MG/2 ML VIAL IVP SCH (11:23)
[2019-09-25] MEDS: ENOXAPARIN 40 MG/0.4 ML SYRINGE. SQ SCH (11:24)
--- NOTE | 2019-09-25 12:51 | PN ---
DATE: 09/25/2019 SUBJECTIVE: The patient is resting, slightly propped up in bed, in no apparent distress. She continues to be intubated and mechanically ventilated. She has also orogastric tube in place. She is definitely more awake, alert, maintaining her oxygen saturation at 98% on FiO2 of 40%. PHYSICAL EXAMINATION: GENERAL: When I examined her, she was pale, no jaundice, cyanosis or thyromegaly. No jugular venous distention. No lower limb edema. VITAL SIGNS: Her heart rate was 57, blood pressure was 135/59, temperature was 97.8, respiratory rate 12 and oxygen saturation was 98%. HEAD, EYES, EARS, NOSE AND THROAT: Normocephalic, atraumatic. She has orotracheal and orogastric tube in place. NECK: Supple. CARDIAC: Normal first and second heart sounds. No gallop or murmur. CHEST: Showed central trachea, equal bilateral expansion, air entry. I could not appreciate any crepitation or rhonchi anteriorly. ABDOMEN: Slightly distended, soft, nontender. NEUROLOGIC: She is definitely more awake, alert, responding appropriately. She moves all extremities without difficulty. Her intake was 700, output was 645. LABORATORY DATA: Her lab work this morning showed a white cell count 5200, hemoglobin 14.9, hematocrit 47, MCV 92, and platelet count of 116,000. Her arterial blood gases this morning showed a pH of 7.42, pCO2 of 49, pO2 of 83, bicarbonate 32, anion gap of 6, oxygen saturation was 96% on FiO2 of 40%. Her chemistry showed a serum sodium 136, potassium 3.4, chloride 98, bicarbonate 35, anion gap of 3, BUN 12, creatinine 0.6, estimated GFR was 97 mL per minute. Her glucose 158, calcium was 8.5. Total bilirubin, AST, ALT, alkaline phosphatase were normal. Total protein was 5.2, albumin was 2.6. Her TSH was 0.375, which is well within normal range. Her total T4, total T3 and free T4 are all within normal range. ASSESSMENT: 1. Acute on chronic hypoxic hypercapnic respiratory failure. 2. Chronic obstructive pulmonary disease exacerbation. 3. Restrictive lung disease due to kyphoscoliosis. 4. Hypertension. 5. Hypothyroidism, although her TSH, T3, T4, and free T4 are all within normal range. PLAN: To continue with observe her off antibiotic. Continue with mechanical ventilation and wean as tolerated. Continue nutritional support for now, continue with Versed and propofol for sedation as the patient seems to be restless and agitated unless the supply chain tech decide to extubate her. MARILYN BURDEN MD DR: JUAN/jean claude JOB#: [id number] / [id number]
--- NOTE | 2019-09-25 13:00 | NUR ---
Pts BP 70's / 30"s - Dr. Lopez's PHYSICAL SECURITY ENGINEER notified and orders received for NS bolus and albumin.
[2019-09-25] MEDS: ALBUMIN HUMAN 5% 250 ML IV SCH ×2 (13:45→14:37)
[2019-09-25] MEDS ORDERED: ALBUMIN HUMAN 5% 500 ML IV ONE (13:45)
[2019-09-25] MEDS ORDERED: IV NORMAL SALINE 500ML BAG 250 ML IV ONE (13:45)
--- NOTE | 2019-09-25 17:30 | NUR ---
Pt's BP again dropping to 70's / 30's. Dr. Ritchie called and notified. Orders received for 500cc NS bolus and stat labs.
[2019-09-25] MEDS ORDERED: IV NORMAL SALINE 500ML BAG 500 ML IV ONE (18:00)
[2019-09-25] MEDS: IV NORMAL SALINE 1000ML BAG 1,000 ML IV SCH (18:09)
[2019-09-25 18:15] LABS: HEMATOCRIT 43.7 % (36.0-47.0); RED BLOOD COUNT 4.68 x10^6/uL (3.50-5.40); RED CELL DISTRIBUTION WIDTH 15.4 % (11.5-14.5); WHITE BLOOD COUNT 9.4 x10^3/uL (4.0-11.0)
[2019-09-25 18:24] LABS: CREATININE 0.6 mg/dL (0.6-1.0); GFR 97.7; POTASSIUM 3.6 mmol/L (3.5-5.1)
[2019-09-25 18:30] LABS: ALBUMIN 3.1 g/dL (3.4-5.0); ALBUMIN/GLOBULIN RATIO 1.6 (1.0-1.7); TOTAL BILIRUBIN 0.3 mg/dL (0.2-1.0); TOTAL PROTEIN 5.1 g/dL (6.4-8.2)
[2019-09-25] MEDS: CITALOPRAM 20 MG TABLET. PO SCH (21:48)
[2019-09-25] MEDS: ATORVASTATIN CALCIUM 20 MG TABLET PO SCH (21:48)
[2019-09-26] VITALS (24 sets, daily range): BP systolic 90–140; BP diastolic 30–76
--- NOTE | 2019-09-26 04:57 | RAD ---
Exam: Chest one view INDICATION: Intubated TECHNIQUE: Frontal view of the chest Comparisons: 09/25/2019 FINDINGS: Endotracheal tube with tip approximately 3 cm above the joe. Enteric tube traverses below the diaphragm distal extent not visualized. Heart is at the upper limits of normal in size. Pulmonary vessels are within normal limits. Hazy opacity at the left lung base. IMPRESSION: 1. Lines and tubes described above. 2. Hazy opacity at the left lung base likely representing pleural effusion with adjacent airspace disease Electronically signed by: Vira Mosqueda MD (09/26/2019 4:55 AM) [id number]
[2019-09-26 05:02] LABS: HEMATOCRIT 45.4 % (36.0-47.0); HEMOGLOBIN 14.4 g/dL (12.0-15.5); RED BLOOD COUNT 4.85 x10^6/uL (3.50-5.40); RED CELL DISTRIBUTION WIDTH 15.7 % (11.5-14.5); WHITE BLOOD COUNT 9.3 x10^3/uL (4.0-11.0)
[2019-09-26 05:25] LABS: CALCIUM 8.7 mg/dL (8.5-10.1); CREATININE 0.6 mg/dL (0.6-1.0); GFR 97.7; POTASSIUM 3.7 mmol/L (3.5-5.1)
[2019-09-26] MEDS: PROPOFOL 100 ML IV PRN (07:34)
[2019-09-26] MEDS: ENOXAPARIN 40 MG/0.4 ML SYRINGE. SQ SCH (08:08)
[2019-09-26] MEDS: methylPREDNISolone SOD SUCC PF 125 MG/2 ML VIAL. IV SCH ×2 (08:08→21:38)
[2019-09-26] MEDS: ASCORBIC ACID 500 MG TABLET PO SCH (08:08)
[2019-09-26] MEDS: FAMOTIDINE 20 MG/2 ML VIAL IVP SCH (08:08)
--- NOTE | 2019-09-26 08:30 | NUR ---
Discussed with Dr. Ritchie patients hypotension from yesterday may be due to multiple hypertensive medications. Verbal order to hold all antihypertensives this morning except for Norvasc.
[2019-09-26] MEDS: LOSARTAN POTASSIUM 50 MG TABLET. PO SCH (09:00)
[2019-09-26] MEDS: METOPROLOL SUCC 24HR ER 100 MG TAB.ER.24H. PO SCH ×2 (09:00→21:37)
[2019-09-26] MEDS: hydroCHLOROthiazide 12.5 MG CAPSULE PO SCH (09:00)
--- NOTE | 2019-09-26 09:19 | PDOC ---
PULMONARY PROGRESS NOTES Subjective remains on vent at 40%, nursing reports hypotension yesterday, changes to BP medications made no other concerns reported Vitals Vital Signs Date Time Temp Pulse Resp B/P (MAP) Pulse Ox O2 Delivery O2 Flow Rate FiO2 09/26/19 06:00 61 11 113/58 (76) 97 Ventilator 09/26/19 05:26 40.0 09/26/19 04:00 98.5 98.5 Comments intubated General: Alert Lungs: Clear Cardiovascular: S1, S2 Abdomen: Soft Neuro Exam: Alert Extremities: No Edema Skin: Warm, Dry Labs Laboratory Tests Test 09/25/19 03:00 09/25/19 08:20 09/25/19 18:00 09/26/19 04:00 White Blood Count 5.2 x10^3/uL (4.0-11.0) 9.4 x10^3/uL (4.0-11.0) 9.3 x10^3/uL (4.0-11.0) Red Blood Count 5.09 x10^6/uL (3.50-5.40) 4.68 x10^6/uL (3.50-5.40) 4.85 x10^6/uL (3.50-5.40) Hemoglobin 14.9 g/dL (12.0-15.5) 14.0 g/dL (12.0-15.5) 14.4 g/dL (12.0-15.5) Hematocrit 47.0 % (36.0-47.0) 43.7 % (36.0-47.0) 45.4 % (36.0-47.0) Mean Corpuscular Volume 92 fL (79-100) 93 fL (79-100) 93 fL (79-100) Mean Corpuscular Hemoglobin 29 pg (25-35) 30 pg (25-35) 30 pg (25-35) Mean Corpuscular Hemoglobin Concent 32 g/dL (31-37) 32 g/dL (31-37) 32 g/dL (31-37) Red Cell Distribution Width 15.6 % (11.5-14.5) 15.4 % (11.5-14.5) 15.7 % (11.5-14.5) Platelet Count 116 x10^3/uL (140-400) 113 x10^3/uL (140-400) 103 x10^3/uL (140-400) Sodium Level 136 mmol/L (136-145) 137 mmol/L (136-145) 136 mmol/L (136-145) Potassium Level 3.4 mmol/L (3.5-5.1) 3.6 mmol/L (3.5-5.1) 3.7 mmol/L (3.5-5.1) Chloride Level 98 mmol/L (98-107) 98 mmol/L (98-107) 98 mmol/L (98-107) Carbon Dioxide Level 35 mmol/L (21-32) 37 mmol/L (21-32) 37 mmol/L (21-32) Anion Gap 3 (6-14) 2 (6-14) 1 (6-14) Blood Urea Nitrogen 12 mg/dL (7-20) 12 mg/dL (7-20) 13 mg/dL (7-20) Creatinine 0.6 mg/dL (0.6-1.0) 0.6 mg/dL (0.6-1.0) 0.6 mg/dL (0.6-1.0) Estimated GFR (Cockcroft-Gault) 97.7 97.7 97.7 BUN/Creatinine Ratio 20 (6-20) 20 (6-20) Glucose Level 158 mg/dL (70-99) 126 mg/dL (70-99) 126 mg/dL (70-99) Calcium Level 8.5 mg/dL (8.5-10.1) 8.0 mg/dL (8.5-10.1) 8.7 mg/dL (8.5-10.1) Total Bilirubin 0.4 mg/dL (0.2-1.0) 0.3 mg/dL (0.2-1.0) Aspartate Amino Transf (AST/SGOT) 11 U/L (15-37) 9 U/L (15-37) Alanine Aminotransferase (ALT/SGPT) 7 U/L (14-59) 9 U/L (14-59) Alkaline Phosphatase 48 U/L (46-116) 42 U/L (46-116) Total Protein 5.2 g/dL (6.4-8.2) 5.1 g/dL (6.4-8.2) Albumin 2.6 g/dL (3.4-5.0) 3.1 g/dL (3.4-5.0) Albumin/Globulin Ratio 1.0 (1.0-1.7) 1.6 (1.0-1.7) O2 Saturation 96 % (92-99) Arterial Blood pH 7.42 (7.35-7.45) Arterial Blood pCO2 at Patient Temp 49 mmHg (35-46) Arterial Blood pO2 at Patient Temp 83 mmHg (65-108) Arterial Blood HCO3 32 mmol/L (21-28) Arterial Blood Base Excess 6 mmol/L (-3-3) FiO2 40 Lactic Acid Level 1.2 mmol/L (0.4-2.0) Troponin I Quantitative < 0.017 ng/mL (0.000-0.055) Procalcitonin < 0.10 ng/mL (0.00-0.10) Laboratory Tests Test 09/25/19 18:00 09/26/19 04:00 White Blood Count 9.4 x10^3/uL (4.0-11.0) 9.3 x10^3/uL (4.0-11.0) Red Blood Count 4.68 x10^6/uL (3.50-5.40) 4.85 x10^6/uL (3.50-5.40) Hemoglobin 14.0 g/dL (12.0-15.5) 14.4 g/dL (12.0-15.5) Hematocrit 43.7 % (36.0-47.0) 45.4 % (36.0-47.0) Mean Corpuscular Volume 93 fL (79-100) 93 fL (79-100) Mean Corpuscular Hemoglobin 30 pg (25-35) 30 pg (25-35) Mean Corpuscular Hemoglobin Concent 32 g/dL (31-37) 32 g/dL (31-37) Red Cell Distribution Width 15.4 % (11.5-14.5) 15.7 % (11.5-14.5) Platelet Count 113 x10^3/uL (140-400) 103 x10^3/uL (140-400) Sodium Level 137 mmol/L (136-145) 136 mmol/L (136-145) Potassium Level 3.6 mmol/L (3.5-5.1) 3.7 mmol/L (3.5-5.1) Chloride Level 98 mmol/L (98-107) 98 mmol/L (98-107) Carbon Dioxide Level 37 mmol/L (21-32) 37 mmol/L (21-32) Anion Gap 2 (6-14) 1 (6-14) Blood Urea Nitrogen 12 mg/dL (7-20) 13 mg/dL (7-20) Creatinine 0.6 mg/dL (0.6-1.0) 0.6 mg/dL (0.6-1.0) Estimated GFR (Cockcroft-Gault) 97.7 97.7 BUN/Creatinine Ratio 20 (6-20) Glucose Level 126 mg/dL (70-99) 126 mg/dL (70-99) Lactic Acid Level 1.2 mmol/L (0.4-2.0) Calcium Level 8.0 mg/dL (8.5-10.1) 8.7 mg/dL (8.5-10.1) Total Bilirubin 0.3 mg/dL (0.2-1.0) Aspartate Amino Transf (AST/SGOT) 9 U/L (15-37) Alanine Aminotransferase (ALT/SGPT) 9 U/L (14-59) Alkaline Phosphatase 42 U/L (46-116) Troponin I Quantitative < 0.017 ng/mL (0.000-0.055) Total Protein 5.1 g/dL (6.4-8.2) Albumin 3.1 g/dL (3.4-5.0) Albumin/Globulin Ratio 1.6 (1.0-1.7) Procalcitonin < 0.10 ng/mL (0.00-0.10) Medications Active Scripts Medications Dose Route/Sig Max Daily Dose Days Date Category Xanax (Alprazolam) 0.5 Mg Tablet 1 Tab PO PRN TID PRN 09/10/18 Reported Kya-C 1,000 Mg Tablet (Ascorbate Calcium/Bioflavonoid) 1 Each Tablet 1 Each PO DAILY 09/10/18 Reported Simvastatin 40 Mg Tablet 1 Tab PO QHS 09/10/18 Reported Toprol Xl (Metoprolol Succinate) 50 Mg Tab.er.24h 50 Mg PO BID 09/10/18 Reported Escitalopram Oxalate 5 Mg Tablet 5 Mg PO QHS 09/10/18 Reported Impression . IMPRESSION: 1. Dyrio-sw-bjaqwoq hypercapnic hypoxemic respiratory failure. 2. Acute exacerbation of chronic obstructive pulmonary disease. 3. Mild increased lung markings on chest x-ray compatible with venous congestion. 4. Suspect secondary pulmonary hypertension. 5. Tobacco-dependent. 6. Hypertension. 7. Anxiety. 8. POSSIBLE PNEUMONIA CXR: IMPRESSION: 1. Lines and tubes described above. 2. Hazy opacity at the left lung base likely representing pleural effusion with adjacent airspace disease Plan . PS all day as tolerated, not ready for extubation Failed BIPAP, required intubation on 09/23/19 NEBS/PRN suctioning need to aim for PC02 60-65 d/w RT cont. TF-- tolerating well steroids with taper follow ABG/CXR DVT/GI PPX: PEPCID/Lovenox cct 30 minutes reviewing data/labs cxr and formulating a plan MARIAN WHELAN MD Sep 26, 2019 09:19
[2019-09-26] MEDS: ALBUTEROL SULFATE 2.5 MG/3 ML NEBU. NEB SCH ×4 (09:43→20:14)
[2019-09-26] MEDS: amLODIPine BESYLATE 5 MG TABLET PO SCH (10:30)
[2019-09-26 10:49] LABS: BASE EXCESS ABG 5 mmol/L (-3-3); HCO3 ABG 32 mmol/L (21-28); PO2 ABG 71 mmHg (65-108); SAT O2 ABG 93 % (92-99)
[2019-09-26 10:51] LABS: FIO2 ABG 40; PCO2 ABG 61 mmHg (35-46)
--- NOTE | 2019-09-26 10:53 | PN ---
DATE: 09/26/2019 SUBJECTIVE: The patient is resting slightly propped up in bed and sedated, intubated, on mechanical ventilation. She had an episode of hypotension yesterday and we did actually extensive lab work including her lactic acid and procalcitonin, both were normal. She is apparently on 4 antihypertensive medications together with sedation, probably ____ together to bring her blood pressure down. However, when I saw her this morning, she looked well and was clearly in no apparent respiratory distress. No pallor, jaundice, cyanosis, or thyromegaly. No jugular venous distention. No limb edema. PHYSICAL EXAMINATION: VITAL SIGNS: Her heart rate was 61, blood pressure was 113/58, temperature was 98.5, respiratory rate was 11, and oxygen saturation was 97% on FiO2 of 40%. HEAD, EYES, EARS, NOSE AND THROAT: Showed normocephalic, atraumatic. She has orotracheal and orogastric tube in place. NECK: Supple. HEART: Showed normal first and second heart sounds. No gallop or murmur. CHEST: Clear to auscultation. No crepitation or rhonchi. ABDOMEN: Distended, soft, and nontender. NEUROLOGIC: She is sedated. Her intake was 1450, output was 750. LABORATORY DATA: As of this morning, her white cell count was 9300, hemoglobin 14.4, hematocrit 45, MCV 93, and platelet count of 103,000. Her chemistry showed a serum sodium of 136, potassium 3.7, chloride 98, bicarbonate 37, anion gap of 1, BUN 13, creatinine 0.6, estimated GFR was 97 mL per minute, glucose was 126, and calcium was 8.7. ASSESSMENT: 1. Acute on chronic hypoxic hypercapnic respiratory failure. 2. Chronic obstructive pulmonary disease exacerbation. 3. Restrictive lung disease due to kyphoscoliosis. 4. Hypertension. 5. Hypothyroidism, however, she is biochemically euthyroid. Her TSH, T3, T4, free T4 are all within normal range. 6. Thrombocytopenia. Her platelet count is gradually drifting down from 134,000 on admission now to 103,000. She is on Lovenox and famotidine. PLAN: My plan is to hold hydrochlorothiazide, losartan, and metoprolol. Continue with amlodipine for now. I will repeat her labs tomorrow. Also, I will discontinue her Lovenox and start her on SCDs and send blood for heparin-induced thrombocytopenia. MARILYN BURDEN MD DR: JUAN/jean claude JOB#: [id number] / [id number]
[2019-09-26] MEDS: IV DEXTROSE 5 %-0.45 % NACL 1,000 ML IV SCH ×2 (19:00→23:00)
[2019-09-26] MEDS: CITALOPRAM 20 MG TABLET. PO SCH (21:37)
[2019-09-26] MEDS: ATORVASTATIN CALCIUM 20 MG TABLET PO SCH (21:37)
[2019-09-26] MEDS: IV NORMAL SALINE 1000ML BAG 1,000 ML IV SCH (21:37)
--- NOTE | 2019-09-26 22:00 | NUR ---
Patient has been on pressure support since before beginning of shift and tolerated well. Around 2144 patients O2 dropping into 80s and patient not pulling tidal volumes. RT paged and patient was switched back over to assist control at 2200.
[2019-09-27] VITALS (24 sets, daily range): BP systolic 113–179; BP diastolic 52–82
[2019-09-27 05:08] LABS: HEMATOCRIT 45.8 % (36.0-47.0); HEMOGLOBIN 14.4 g/dL (12.0-15.5); RED BLOOD COUNT 4.91 x10^6/uL (3.50-5.40); RED CELL DISTRIBUTION WIDTH 15.6 % (11.5-14.5)
[2019-09-27 05:30] LABS: BLOOD UREA NITROGEN 16 mg/dL (7-20); CALCIUM 9.4 mg/dL (8.5-10.1); CARBON DIOXIDE 41 mmol/L (21-32); CHLORIDE 98 mmol/L (98-107); CREATININE 0.5 mg/dL (0.6-1.0); GFR 120.6; GLUCOSE 114 mg/dL (70-99); SODIUM 138 mmol/L (136-145)
--- NOTE | 2019-09-27 06:31 | RAD ---
Exam: Chest one view INDICATION: Shortness of breath TECHNIQUE: Frontal view of the chest Comparisons: 08/27/2019 FINDINGS: Endotracheal tube with tip approximately 2 cm with the joe. Enteric tube traverses below the diaphragm, distal extent not visualized likely within the stomach. Heart is enlarged. Pulmonary vessels are within normal limits. There is a small left pleural effusion. There is adjacent airspace disease IMPRESSION: Small left pleural effusion with adjacent airspace disease, likely atelectasis. Lines and tubes described above. Electronically signed by: Vira Mosqueda MD (09/27/2019 6:28 AM) [id number]
[2019-09-27] MEDS: hydroCHLOROthiazide 12.5 MG CAPSULE PO SCH (07:40)
[2019-09-27] MEDS: LOSARTAN POTASSIUM 50 MG TABLET. PO SCH (08:07)
[2019-09-27] MEDS: ASCORBIC ACID 500 MG TABLET PO SCH (08:07)
[2019-09-27] MEDS: amLODIPine BESYLATE 5 MG TABLET PO SCH (08:07)
[2019-09-27] MEDS: METOPROLOL TART IMMED RELEASE 50 MG TABLET. PO SCH ×2 (08:07→21:00)
[2019-09-27] MEDS: IV DEXTROSE 5 %-0.45 % NACL 1,000 ML IV SCH ×2 (08:07→19:00)
--- NOTE | 2019-09-27 08:08 | PN ---
DATE: 09/27/2019 SUBJECTIVE: The patient is resting, slightly propped up in bed, continued to be intubated, mechanically ventilated, although she is off sedation, awake, alert. Her blood pressure is somewhat on the high side. Yesterday, she had an episode of hypotension and we held her antihypertensive medication. PHYSICAL EXAMINATION: GENERAL: When I examined her, she looked well and was clearly in no apparent respiratory distress. No pallor, jaundice, cyanosis or thyromegaly. No jugular venous distention. No limb edema. VITAL SIGNS: Her heart rate was 92, blood pressure was 179/82, temperature was 99.1, respiratory rate was 21 and oxygen saturation was 93% on FiO2 of 40%. HEAD, EYES, EARS, NOSE AND THROAT: Showed normocephalic, atraumatic. She has orotracheal and orogastric tube in place. NECK: Supple. CARDIAC: Normal first and second heart sounds. No gallop, rub or murmur. CHEST: Clear to auscultation. No crepitation or rhonchi. ABDOMEN: Distended, soft, nontender. NEUROLOGIC: She is awake, alert, responding appropriately. All cranial nerves intact. She moves extremities without difficulty. Her intake was 3400, output was 2800. LABORATORY DATA: As of this morning, her white cell count was 8000, hemoglobin 14, hematocrit 46, MCV 93, and platelet count of 110,000. Her chemistry showed a serum sodium 138, potassium 4, chloride 98, bicarbonate 41, anion gap 0. BUN is 16, creatinine 0.5, estimated GFR was 120 mL per minute. Her glucose 114, calcium was 9.4. ASSESSMENT: 1. Acute on chronic hypoxic hypercapnic respiratory failure. 2. Chronic obstructive pulmonary disease exacerbation. 3. Restrictive lung disease due to kyphoscoliosis. 4. Hypertension. 5. Hypothyroidism, however, she is biochemically euthyroid. Her T3, T4, free T4 and TSH are all within normal range. 6. Thrombocytopenia, resolving. Her platelet count has risen up from 103,000 to 110,000. I discontinued her Lovenox. PLAN: To restart her antihypertensive medication. The patient is awake, alert and would probably be extubated. MARILYN BURDEN MD DR: JUAN/jean claude JOB#: [id number] / [id number]
[2019-09-27] MEDS: ALBUTEROL SULFATE 2.5 MG/3 ML NEBU. NEB SCH ×4 (08:09→19:42)
--- NOTE | 2019-09-27 08:09 | CARD ---
MR#: [id number] Date of Study: 09/26/2019 Ordering Physician: MARIAN WHELAN, Referring Physician: MARIAN HWELAN, Tech: Mayelin Delgado APPROVED REPORT EXAM: Two-dimensional and M-mode echocardiogram with Doppler and color Doppler. Other Information Quality : AverageHR: 64bpm INDICATION COPD Congestive Heart Failure Echo Enhancing Agent Indication: Rule Out Septal Defect Agent/Amount Used: Agitated Saline 10mL 2D DIMENSIONS RVDd4.4 (2.9-3.5cm)Left Atrium(2D)3.8 (1.6-4.0cm) IVSd1.2 (0.7-1.1cm)Aortic Root(2D)3.2 (2.0-3.7cm) LVDd4.8 (3.9-5.9cm)LVOT Diameter2.0 (1.8-2.4cm) PWd1.2 (0.7-1.1cm)LVDs3.4 (2.5-4.0cm) FS (%) 29.4 %SV61.4 ml LVEF(%)56.2 (>50%) Aortic Valve AoV Peak Aristides.191.6cm/sAoV VTI31.2cm AO Peak GR.14.7mmHgLVOT VTI 27.77cm AO Mean GR.6mmHg Mitral Valve MV E Ivlqpuid84.8cm/sMV E Peak Gr.3mmHg MV DECEL [id number] A Jxejeaga02.2cm/s MV E Mean Gr.1mmHgE/A Ratio1.0 TDI Lateral E' P. V8.17cm/sMedial E' P. V8.11cm/s E/Lateral E'9.4E/Medial E'9.5 Tricuspid Valve TR P. Vhncddeq626tb/sRAP ONDZXIPY1nsAc TR Peak Gr.38boQsALAL80alCb Pulmonary Vein S1 Plseivbr71.9cm/sS2 Melgdimm07.16cm/s D2 Mbhvtuee07.2cm/sPVa [id number] LEFT VENTRICLE The left ventricle is normal size. There is mild to moderate concentric left ventricular hypertrophy. The left ventricular systolic function is normal. The Ejection Fraction is 55-60%. There is normal L V segmental wall motion. Transmitral Doppler flow pattern is Grade II-pseudonormal filling dynamics. RIGHT VENTRICLE The right ventricle is mildly dilated. The right ventricle is mildly hypertrophied. The right ventric ular systolic function is normal. ATRIA The left atrium size is normal. The right atrium is mildly dilated. The interatrial septum is intact with no evidence for an atrial septal defect or patent foramen ovale as noted on 2-D or Doppler imagi ng. AORTIC VALVE The aortic valve is calcified but opens well. Doppler and Color Flow revealed no significant aortic r egurgitation. There is no significant aortic valvular stenosis. MITRAL VALVE The mitral valve is normal in structure and function. There is no evidence of mitral valve prolapse. There is no mitral valve stenosis. Doppler and Color-flow revealed trace mitral regurgitation. TRICUSPID VALVE The tricuspid valve is normal in structure and function. Doppler and Color Flow revealed trace to mil d tricuspid regurgitation with an estimated PAP of 52 mmHg. There is no tricuspid valve stenosis. PULMONIC VALVE The pulmonic valve is not well visualized. Doppler and Color Flow revealed no pulmonic valvular regur gitation. GREAT VESSELS The aortic root is normal in size. The IVC is dilated and collapses >50% with inspiration. PERICARDIAL EFFUSION There is no evidence of significant pericardial effusion. Critical Notification Critical Value: No <Conclusion> The left ventricular systolic function is normal. The Ejection Fraction is 55-60%. There is normal LV segmental wall motion. Transmitral Doppler flow pattern is Grade II-pseudonormal filling dynamics. Trace mitral regurgitation. Trace to mild tricuspid regurgitation with an estimated PAP of 52 mmHg. There is no evidence of significant pericardial effusion. Bubble study negative for interatrial shunt. Signed by : Darshan Salamanca, Electronically Approved : 09/27/2019 08:09:08
[2019-09-27 08:18] LABS: BASE EXCESS ABG 11 mmol/L (-3-3); HCO3 ABG 38 mmol/L (21-28); PO2 ABG 70 mmHg (65-108); SAT O2 ABG 94 % (92-99)
[2019-09-27] MEDS: methylPREDNISolone SOD SUCC PF 125 MG/2 ML VIAL. IV SCH ×2 (08:40→21:08)
[2019-09-27] MEDS: hydrALAZINE 20 MG/ML VIAL. IVP PRN (08:40)
[2019-09-27] MEDS: FAMOTIDINE 20 MG/2 ML VIAL IVP SCH (08:40)
[2019-09-27 09:32] LABS: FIO2 ABG 40; PCO2 ABG 60 mmHg (35-46)
--- NOTE | 2019-09-27 10:13 | PDOC ---
PULMONARY PROGRESS NOTES Subjective remains on vent at 40%, fully awake, on CPAP trial Vitals Vital Signs Date Time Temp Pulse Resp B/P (MAP) Pulse Ox O2 Delivery O2 Flow Rate FiO2 09/27/19 09:40 95 Ventilator 09/27/19 08:40 79 162/78 09/27/19 06:00 21 09/27/19 04:00 99.1 99.1 09/26/19 14:12 40.0 Comments intubated General: Alert, No acute distress Lungs: Clear Cardiovascular: S1, S2 Abdomen: Soft Neuro Exam: Alert Extremities: No Edema Skin: Warm, Dry Labs Laboratory Tests Test 09/25/19 18:00 09/26/19 04:00 09/26/19 10:30 09/27/19 00:31 White Blood Count 9.4 x10^3/uL (4.0-11.0) 9.3 x10^3/uL (4.0-11.0) Red Blood Count 4.68 x10^6/uL (3.50-5.40) 4.85 x10^6/uL (3.50-5.40) Hemoglobin 14.0 g/dL (12.0-15.5) 14.4 g/dL (12.0-15.5) Hematocrit 43.7 % (36.0-47.0) 45.4 % (36.0-47.0) Mean Corpuscular Volume 93 fL (79-100) 93 fL (79-100) Mean Corpuscular Hemoglobin 30 pg (25-35) 30 pg (25-35) Mean Corpuscular Hemoglobin Concent 32 g/dL (31-37) 32 g/dL (31-37) Red Cell Distribution Width 15.4 % (11.5-14.5) 15.7 % (11.5-14.5) Platelet Count 113 x10^3/uL (140-400) 103 x10^3/uL (140-400) Sodium Level 137 mmol/L (136-145) 136 mmol/L (136-145) Potassium Level 3.6 mmol/L (3.5-5.1) 3.7 mmol/L (3.5-5.1) Chloride Level 98 mmol/L (98-107) 98 mmol/L (98-107) Carbon Dioxide Level 37 mmol/L (21-32) 37 mmol/L (21-32) Anion Gap 2 (6-14) 1 (6-14) Blood Urea Nitrogen 12 mg/dL (7-20) 13 mg/dL (7-20) Creatinine 0.6 mg/dL (0.6-1.0) 0.6 mg/dL (0.6-1.0) Estimated GFR (Cockcroft-Gault) 97.7 97.7 BUN/Creatinine Ratio 20 (6-20) Glucose Level 126 mg/dL (70-99) 126 mg/dL (70-99) Lactic Acid Level 1.2 mmol/L (0.4-2.0) Calcium Level 8.0 mg/dL (8.5-10.1) 8.7 mg/dL (8.5-10.1) Total Bilirubin 0.3 mg/dL (0.2-1.0) Aspartate Amino Transf (AST/SGOT) 9 U/L (15-37) Alanine Aminotransferase (ALT/SGPT) 9 U/L (14-59) Alkaline Phosphatase 42 U/L (46-116) Troponin I Quantitative < 0.017 ng/mL (0.000-0.055) Total Protein 5.1 g/dL (6.4-8.2) Albumin 3.1 g/dL (3.4-5.0) Albumin/Globulin Ratio 1.6 (1.0-1.7) Procalcitonin < 0.10 ng/mL (0.00-0.10) O2 Saturation 93 % (92-99) Arterial Blood pH 7.35 (7.35-7.45) Arterial Blood pCO2 at Patient Temp 61 mmHg (35-46) Arterial Blood pO2 at Patient Temp 71 mmHg (65-108) Arterial Blood HCO3 32 mmol/L (21-28) Arterial Blood Base Excess 5 mmol/L (-3-3) FiO2 40 Glucose (Fingerstick) 98 mg/dL (70-99) Test 09/27/19 04:50 09/27/19 08:00 White Blood Count 8.0 x10^3/uL (4.0-11.0) Red Blood Count 4.91 x10^6/uL (3.50-5.40) Hemoglobin 14.4 g/dL (12.0-15.5) Hematocrit 45.8 % (36.0-47.0) Mean Corpuscular Volume 93 fL (79-100) Mean Corpuscular Hemoglobin 29 pg (25-35) Mean Corpuscular Hemoglobin Concent 32 g/dL (31-37) Red Cell Distribution Width 15.6 % (11.5-14.5) Platelet Count 110 x10^3/uL (140-400) Sodium Level 138 mmol/L (136-145) Potassium Level 4.0 mmol/L (3.5-5.1) Chloride Level 98 mmol/L (98-107) Carbon Dioxide Level 41 mmol/L (21-32) Anion Gap (6-14) Blood Urea Nitrogen 16 mg/dL (7-20) Creatinine 0.5 mg/dL (0.6-1.0) Estimated GFR (Cockcroft-Gault) 120.6 Glucose Level 114 mg/dL (70-99) Calcium Level 9.4 mg/dL (8.5-10.1) O2 Saturation 94 % (92-99) Arterial Blood pH 7.42 (7.35-7.45) Arterial Blood pCO2 at Patient Temp 60 mmHg (35-46) Arterial Blood pO2 at Patient Temp 70 mmHg (65-108) Arterial Blood HCO3 38 mmol/L (21-28) Arterial Blood Base Excess 11 mmol/L (-3-3) FiO2 40 Laboratory Tests Test 09/26/19 10:30 09/27/19 00:31 09/27/19 04:50 09/27/19 08:00 O2 Saturation 93 % (92-99) 94 % (92-99) Arterial Blood pH 7.35 (7.35-7.45) 7.42 (7.35-7.45) Arterial Blood pCO2 at Patient Temp 61 mmHg (35-46) 60 mmHg (35-46) Arterial Blood pO2 at Patient Temp 71 mmHg (65-108) 70 mmHg (65-108) Arterial Blood HCO3 32 mmol/L (21-28) 38 mmol/L (21-28) Arterial Blood Base Excess 5 mmol/L (-3-3) 11 mmol/L (-3-3) FiO2 40 40 Glucose (Fingerstick) 98 mg/dL (70-99) White Blood Count 8.0 x10^3/uL (4.0-11.0) Red Blood Count 4.91 x10^6/uL (3.50-5.40) Hemoglobin 14.4 g/dL (12.0-15.5) Hematocrit 45.8 % (36.0-47.0) Mean Corpuscular Volume 93 fL (79-100) Mean Corpuscular Hemoglobin 29 pg (25-35) Mean Corpuscular Hemoglobin Concent 32 g/dL (31-37) Red Cell Distribution Width 15.6 % (11.5-14.5) Platelet Count 110 x10^3/uL (140-400) Sodium Level 138 mmol/L (136-145) Potassium Level 4.0 mmol/L (3.5-5.1) Chloride Level 98 mmol/L (98-107) Carbon Dioxide Level 41 mmol/L (21-32) Anion Gap (6-14) Blood Urea Nitrogen 16 mg/dL (7-20) Creatinine 0.5 mg/dL (0.6-1.0) Estimated GFR (Cockcroft-Gault) 120.6 Glucose Level 114 mg/dL (70-99) Calcium Level 9.4 mg/dL (8.5-10.1) Medications Active Scripts Medications Dose Route/Sig Max Daily Dose Days Date Category Xanax (Alprazolam) 0.5 Mg Tablet 1 Tab PO PRN TID PRN 09/10/18 Reported Kya-C 1,000 Mg Tablet (Ascorbate Calcium/Bioflavonoid) 1 Each Tablet 1 Each PO DAILY 09/10/18 Reported Simvastatin 40 Mg Tablet 1 Tab PO QHS 09/10/18 Reported Toprol Xl (Metoprolol Succinate) 50 Mg Tab.er.24h 50 Mg PO BID 09/10/18 Reported Escitalopram Oxalate 5 Mg Tablet 5 Mg PO QHS 09/10/18 Reported Impression . IMPRESSION: 1. Uxmzh-ba-pfgtuwd hypercapnic hypoxemic respiratory failure. 2. Acute exacerbation of chronic obstructive pulmonary disease. 3. Mild increased lung markings on chest x-ray compatible with venous congestion. h/o Diastolic dysfunction 4. Suspect secondary pulmonary hypertension. 5. Tobacco-dependent. 6. Hypertension. 7. Anxiety. 8. POSSIBLE PNEUMONIA CXR: IMPRESSION: 1. Lines and tubes described above. 2. Hazy opacity at the left lung base likely representing pleural effusion with adjacent airspace disease Plan . tolerating PS f/u ABG If adequate, will do T-piece trial will need BIPAP if extubated Failed BIPAP, required intubation on 09/23/19 NEBS/PRN suctioning need to aim for PC02 60-65 d/w RT cont. TF-- tolerating well steroids with taper follow ABG/CXR d/w daughter DVT/GI PPX: PEPCID/Lovenox SANDRA MANZANO MD Sep 27, 2019 10:13
[2019-09-27] MEDS: IV NORMAL SALINE 1000ML BAG 1,000 ML IV SCH (10:32)
[2019-09-27 10:34] LABS: BASE EXCESS ABG 12 mmol/L (-3-3); HCO3 ABG 38 mmol/L (21-28); PCO2 ABG 58 mmHg (35-46); PO2 ABG 68 mmHg (65-108); SAT O2 ABG 93 % (92-99)
[2019-09-27 11:47] LABS: BASE EXCESS ABG 10 mmol/L (-3-3); HCO3 ABG 38 mmol/L (21-28); PO2 ABG 74 mmHg (65-108); SAT O2 ABG 94 % (92-99)
[2019-09-27 12:19] LABS: FIO2 ABG 40
[2019-09-27 12:22] LABS: FIO2 ABG 40; PCO2 ABG 60 mmHg (35-46)
--- NOTE | 2019-09-27 16:25 | NUR ---
SS following up with discharge planning. Pt now extubated today. SS will continue to follow for discharge planning.
[2019-09-27] MEDS: CITALOPRAM 20 MG TABLET. PO SCH (21:00)
[2019-09-27] MEDS: ATORVASTATIN CALCIUM 20 MG TABLET PO SCH (21:00)
[2019-09-28] VITALS (17 sets, daily range): BP systolic 148–180; BP diastolic 62–84
[2019-09-28] MEDS: hydrALAZINE 20 MG/ML VIAL. IVP PRN ×2 (03:09→08:14)
[2019-09-28] MEDS: IV DEXTROSE 5 %-0.45 % NACL 1,000 ML IV SCH ×2 (05:00→12:45)
[2019-09-28 06:55] LABS: CALCIUM 9.3 mg/dL (8.5-10.1); CREATININE 0.4 mg/dL (0.6-1.0)
[2019-09-28 06:56] LABS: BASO % 0 % (0-3); EOS % 0 % (0-3); HEMATOCRIT 49.4 % (36.0-47.0); HEMOGLOBIN 15.5 g/dL (12.0-15.5); LYMPH # 0.3 x10^3/uL (1.0-4.8); LYMPH % 5 % (24-48); MEAN CORPUSCULAR HEMOGLOBIN 29 pg (25-35); MEAN CORPUSCULAR HGB CONC 32 g/dL (31-37); MEAN CORPUSCULAR VOLUME 93 fL (79-100); MONO # 0.7 x10^3/uL (0.0-1.1); MONO % 10 % (0-9); NEUT # 6.2 x10^3/uL (1.8-7.7); NEUT % 86 % (31-73); PLATELET COUNT 115 x10^3/uL (140-400); RED BLOOD COUNT 5.33 x10^6/uL (3.50-5.40); RED CELL DISTRIBUTION WIDTH 15.9 % (11.5-14.5); WHITE BLOOD COUNT 7.2 x10^3/uL (4.0-11.0)
[2019-09-28] MEDS: ALBUTEROL SULFATE 2.5 MG/3 ML NEBU. NEB SCH ×4 (08:03→20:15)
[2019-09-28] MEDS: FAMOTIDINE 20 MG/2 ML VIAL IVP SCH (08:12)
[2019-09-28] MEDS: methylPREDNISolone SOD SUCC PF 125 MG/2 ML VIAL. IV SCH ×2 (08:15→20:34)
[2019-09-28] MEDS: IV NORMAL SALINE 1000ML BAG 1,000 ML IV SCH (10:32)
[2019-09-28 10:50] LABS: % ATYL 2 % (0-0); % LYMPHS 2 % (24-48); % MONOS 3 % (0-10); % SEGS 93 % (35-66); PLT ESTIMATE DECREASED (ADEQUATE)
--- NOTE | 2019-09-28 11:06 | PN ---
DATE: 09/28/2019 SUBJECTIVE: The patient is resting, slightly propped up in bed, no apparent distress. She apparently was successfully extubated yesterday. She is now on 3 liters of oxygen. On questioning her, she stated she continued to have cough and some shortness of breath. She is hungry and would like to eat and drink. We have already consulted the speech therapy as well as physical and occupational therapy. PHYSICAL EXAMINATION: GENERAL: When I examined her, she looked well and was clearly in no apparent respiratory distress. No pallor, jaundice, cyanosis or thyromegaly. No jugular venous distention. No limb edema. VITAL SIGNS: Her heart rate was 102, blood pressure was 168/83, temperature was 98.3, respiratory rate was 20, and oxygen saturation was 94% on 3 liters of oxygen. HEAD, EYES, EARS, NOSE AND THROAT: Normocephalic, atraumatic. NECK: Supple. HEART: Showed normal first and second heart sounds. No gallop or murmur. CHEST: Showed central trachea, equally reduced expansion, reduced air entry, vesicular sounds. I could not really appreciate any crepitation or rhonchi. ABDOMEN: Slightly distended, soft, nontender. NEUROLOGIC: She is awake, alert, responding appropriately. All cranial nerves intact. She moves extremities without difficulty. Her intake was 2600, output was 900. LABORATORY DATA: Her lab work this morning showed a white cell count 7200, hemoglobin 15.5, hematocrit 49, MCV 93, and platelet count of 115,000. Her chemistry showed serum sodium 138, potassium of 4, chloride 97, bicarbonate 39, anion gap of 2, BUN 16, creatinine 0.4, estimated GFR was 156 mL per minute. Her glucose was 98, calcium was 9.3. Her blood gases as of yesterday showed a pH of 7.42, pCO2 of 60, pO2 of 74, bicarbonate 38, anion gap of 10, and oxygen saturation was 94% on 4 liters of oxygen. We did send blood for heparin-induced antiplatelet antibodies. The results were still pending. ASSESSMENT: 1. Acute on chronic hypoxic hypercapnic respiratory failure. 2. Chronic obstructive pulmonary disease exacerbation. 3. Restrictive lung disease due to kyphoscoliosis. 4. Hypertension. 5. Hypothyroidism however, she is biochemically euthyroid. T3, T4, free T4 and TSH are all within normal range. 6. Thrombocytopenia, resolving. Her platelet count has risen further today from 103,000 to 115,000. I did discontinue her Lovenox and heparin-induced antiplatelet antibody is still pending at the time of this dictation. PLAN: To obviously consult physical, occupational, and speech therapy. We can start feeding her and we can start physical and occupational therapy. MARILYN BURDEN MD DR: JUAN/jean claude JOB#: [id number] / [id number]
[2019-09-28] MEDS: amLODIPine BESYLATE 5 MG TABLET PO SCH (12:43)
[2019-09-28] MEDS: ASCORBIC ACID 500 MG TABLET PO SCH (12:43)
[2019-09-28] MEDS: LOSARTAN POTASSIUM 50 MG TABLET. PO SCH (12:44)
[2019-09-28] MEDS: hydroCHLOROthiazide 12.5 MG CAPSULE PO SCH (12:44)
[2019-09-28] MEDS: METOPROLOL TART IMMED RELEASE 50 MG TABLET. PO SCH ×2 (12:44→20:33)
--- NOTE | 2019-09-28 12:46 | PDOC ---
PULMONARY PROGRESS NOTES Subjective extubated 09/27 doing well used BIPAP last night 5 hrs Vitals Vital Signs Date Time Temp Pulse Resp B/P (MAP) Pulse Ox O2 Delivery O2 Flow Rate FiO2 09/28/19 12:00 98.9 110 21 152/62 (92) 91 Nasal Cannula 3.0 98.9 Comments intubated General: Alert, No acute distress Lungs: Clear Cardiovascular: S1, S2 Abdomen: Soft Neuro Exam: Alert Extremities: No Edema Skin: Warm, Dry Labs Laboratory Tests Test 09/27/19 00:31 09/27/19 04:50 09/27/19 08:00 09/27/19 10:20 Glucose (Fingerstick) 98 mg/dL (70-99) White Blood Count 8.0 x10^3/uL (4.0-11.0) Red Blood Count 4.91 x10^6/uL (3.50-5.40) Hemoglobin 14.4 g/dL (12.0-15.5) Hematocrit 45.8 % (36.0-47.0) Mean Corpuscular Volume 93 fL (79-100) Mean Corpuscular Hemoglobin 29 pg (25-35) Mean Corpuscular Hemoglobin Concent 32 g/dL (31-37) Red Cell Distribution Width 15.6 % (11.5-14.5) Platelet Count 110 x10^3/uL (140-400) Sodium Level 138 mmol/L (136-145) Potassium Level 4.0 mmol/L (3.5-5.1) Chloride Level 98 mmol/L (98-107) Carbon Dioxide Level 41 mmol/L (21-32) Anion Gap (6-14) Blood Urea Nitrogen 16 mg/dL (7-20) Creatinine 0.5 mg/dL (0.6-1.0) Estimated GFR (Cockcroft-Gault) 120.6 Glucose Level 114 mg/dL (70-99) Calcium Level 9.4 mg/dL (8.5-10.1) Heparin-Induced Platelet Antibody See separate report O2 Saturation 94 % (92-99) 93 % (92-99) Arterial Blood pH 7.42 (7.35-7.45) 7.44 (7.35-7.45) Arterial Blood pCO2 at Patient Temp 60 mmHg (35-46) 58 mmHg (35-46) Arterial Blood pO2 at Patient Temp 70 mmHg (65-108) 68 mmHg (65-108) Arterial Blood HCO3 38 mmol/L (21-28) 38 mmol/L (21-28) Arterial Blood Base Excess 11 mmol/L (-3-3) 12 mmol/L (-3-3) FiO2 40 40 Test 09/27/19 11:45 09/28/19 06:15 O2 Saturation 94 % (92-99) Arterial Blood pH 7.42 (7.35-7.45) Arterial Blood pCO2 at Patient Temp 60 mmHg (35-46) Arterial Blood pO2 at Patient Temp 74 mmHg (65-108) Arterial Blood HCO3 38 mmol/L (21-28) Arterial Blood Base Excess 10 mmol/L (-3-3) FiO2 40 White Blood Count 7.2 x10^3/uL (4.0-11.0) Red Blood Count 5.33 x10^6/uL (3.50-5.40) Hemoglobin 15.5 g/dL (12.0-15.5) Hematocrit 49.4 % (36.0-47.0) Mean Corpuscular Volume 93 fL (79-100) Mean Corpuscular Hemoglobin 29 pg (25-35) Mean Corpuscular Hemoglobin Concent 32 g/dL (31-37) Red Cell Distribution Width 15.9 % (11.5-14.5) Platelet Count 115 x10^3/uL (140-400) Neutrophils (%) (Auto) 86 % (31-73) Lymphocytes (%) (Auto) 5 % (24-48) Monocytes (%) (Auto) 10 % (0-9) Eosinophils (%) (Auto) 0 % (0-3) Basophils (%) (Auto) 0 % (0-3) Neutrophils # (Auto) 6.2 x10^3/uL (1.8-7.7) Lymphocytes # (Auto) 0.3 x10^3/uL (1.0-4.8) Monocytes # (Auto) 0.7 x10^3/uL (0.0-1.1) Eosinophils # (Auto) 0.0 x10^3/uL (0.0-0.7) Basophils # (Auto) 0.0 x10^3/uL (0.0-0.2) Segmented Neutrophils % 93 % (35-66) Lymphocytes % 2 % (24-48) Atypical Lymphocytes % (Manual) 2 % (0-0) Monocytes % 3 % (0-10) Platelet Estimate Decreased (ADEQUATE) Large Platelets Occ Sodium Level 138 mmol/L (136-145) Potassium Level 4.0 mmol/L (3.5-5.1) Chloride Level 97 mmol/L (98-107) Carbon Dioxide Level 39 mmol/L (21-32) Anion Gap 2 (6-14) Blood Urea Nitrogen 16 mg/dL (7-20) Creatinine 0.4 mg/dL (0.6-1.0) Estimated GFR (Cockcroft-Gault) 156.0 Glucose Level 98 mg/dL (70-99) Calcium Level 9.3 mg/dL (8.5-10.1) Laboratory Tests Test 09/28/19 06:15 White Blood Count 7.2 x10^3/uL (4.0-11.0) Red Blood Count 5.33 x10^6/uL (3.50-5.40) Hemoglobin 15.5 g/dL (12.0-15.5) Hematocrit 49.4 % (36.0-47.0) Mean Corpuscular Volume 93 fL (79-100) Mean Corpuscular Hemoglobin 29 pg (25-35) Mean Corpuscular Hemoglobin Concent 32 g/dL (31-37) Red Cell Distribution Width 15.9 % (11.5-14.5) Platelet Count 115 x10^3/uL (140-400) Neutrophils (%) (Auto) 86 % (31-73) Lymphocytes (%) (Auto) 5 % (24-48) Monocytes (%) (Auto) 10 % (0-9) Eosinophils (%) (Auto) 0 % (0-3) Basophils (%) (Auto) 0 % (0-3) Neutrophils # (Auto) 6.2 x10^3/uL (1.8-7.7) Lymphocytes # (Auto) 0.3 x10^3/uL (1.0-4.8) Monocytes # (Auto) 0.7 x10^3/uL (0.0-1.1) Eosinophils # (Auto) 0.0 x10^3/uL (0.0-0.7) Basophils # (Auto) 0.0 x10^3/uL (0.0-0.2) Segmented Neutrophils % 93 % (35-66) Lymphocytes % 2 % (24-48) Atypical Lymphocytes % (Manual) 2 % (0-0) Monocytes % 3 % (0-10) Platelet Estimate Decreased (ADEQUATE) Large Platelets Occ Sodium Level 138 mmol/L (136-145) Potassium Level 4.0 mmol/L (3.5-5.1) Chloride Level 97 mmol/L (98-107) Carbon Dioxide Level 39 mmol/L (21-32) Anion Gap 2 (6-14) Blood Urea Nitrogen 16 mg/dL (7-20) Creatinine 0.4 mg/dL (0.6-1.0) Estimated GFR (Cockcroft-Gault) 156.0 Glucose Level 98 mg/dL (70-99) Calcium Level 9.3 mg/dL (8.5-10.1) Medications Active Scripts Medications Dose Route/Sig Max Daily Dose Days Date Category Xanax (Alprazolam) 0.5 Mg Tablet 1 Tab PO PRN TID PRN 09/10/18 Reported Kya-C 1,000 Mg Tablet (Ascorbate Calcium/Bioflavonoid) 1 Each Tablet 1 Each PO DAILY 09/10/18 Reported Simvastatin 40 Mg Tablet 1 Tab PO QHS 09/10/18 Reported Toprol Xl (Metoprolol Succinate) 50 Mg Tab.er.24h 50 Mg PO BID 09/10/18 Reported Escitalopram Oxalate 5 Mg Tablet 5 Mg PO QHS 09/10/18 Reported Impression . IMPRESSION: 1. Oosap-im-ybcapkg hypercapnic hypoxemic respiratory failure. extubated 09/27 2. Acute exacerbation of chronic obstructive pulmonary disease. 3. Mild increased lung markings on chest x-ray compatible with venous congestion. h/o Diastolic dysfunction 4. Suspect secondary pulmonary hypertension. 5. Tobacco-dependent. 6. Hypertension. 7. Anxiety. 8. POSSIBLE PNEUMONIA CXR: IMPRESSION: 1. Lines and tubes described above. 2. Hazy opacity at the left lung base likely representing pleural effusion with adjacent airspace disease Plan . extubated 09/27 on canula BIPAP qhs speech eval steroids with taper d/w daughter DVT/GI PPX: PEPCID/Lovenox SANDRA MANZANO MD Sep 28, 2019 12:46
[2019-09-28] MEDS: ENOXAPARIN 40 MG/0.4 ML SYRINGE. SQ SCH (13:00)
[2019-09-28] MEDS: ATORVASTATIN CALCIUM 20 MG TABLET PO SCH (20:32)
[2019-09-28] MEDS: CITALOPRAM 20 MG TABLET. PO SCH (20:34)
[2019-09-29] VITALS (7 sets, daily range): BP systolic 115–181; BP diastolic 55–75
[2019-09-29] MEDS: IV DEXTROSE 5 %-0.45 % NACL 1,000 ML IV SCH (01:00)
[2019-09-29] MEDS: ALBUTEROL SULFATE 2.5 MG/3 ML NEBU. NEB SCH ×4 (07:32→22:27)
[2019-09-29] MEDS: METOPROLOL TART IMMED RELEASE 50 MG TABLET. PO SCH ×2 (08:53→20:54)
[2019-09-29] MEDS: methylPREDNISolone SOD SUCC PF 125 MG/2 ML VIAL. IV SCH ×2 (08:53→20:54)
[2019-09-29] MEDS: hydroCHLOROthiazide 12.5 MG CAPSULE PO SCH (08:54)
[2019-09-29] MEDS: ASCORBIC ACID 500 MG TABLET PO SCH (08:55)
[2019-09-29] MEDS: FAMOTIDINE 20 MG/2 ML VIAL IVP SCH (08:58)
--- NOTE | 2019-09-29 11:17 | PDOC ---
PULMONARY PROGRESS NOTES Subjective extubated 09/27 doing well used BIPAP last night 5 hrs Vitals Vital Signs Date Time Temp Pulse Resp B/P (MAP) Pulse Ox O2 Delivery O2 Flow Rate FiO2 09/29/19 08:53 98 128/59 09/29/19 08:00 Nasal Cannula 3.0 09/29/19 07:34 91 09/29/19 07:00 98.3 22 98.3 Comments intubated General: Alert, No acute distress Lungs: Clear Cardiovascular: S1, S2 Abdomen: Soft Neuro Exam: Alert Extremities: No Edema Skin: Warm, Dry Labs Laboratory Tests Test 09/27/19 11:45 09/28/19 06:15 O2 Saturation 94 % (92-99) Arterial Blood pH 7.42 (7.35-7.45) Arterial Blood pCO2 at Patient Temp 60 mmHg (35-46) Arterial Blood pO2 at Patient Temp 74 mmHg (65-108) Arterial Blood HCO3 38 mmol/L (21-28) Arterial Blood Base Excess 10 mmol/L (-3-3) FiO2 40 White Blood Count 7.2 x10^3/uL (4.0-11.0) Red Blood Count 5.33 x10^6/uL (3.50-5.40) Hemoglobin 15.5 g/dL (12.0-15.5) Hematocrit 49.4 % (36.0-47.0) Mean Corpuscular Volume 93 fL (79-100) Mean Corpuscular Hemoglobin 29 pg (25-35) Mean Corpuscular Hemoglobin Concent 32 g/dL (31-37) Red Cell Distribution Width 15.9 % (11.5-14.5) Platelet Count 115 x10^3/uL (140-400) Neutrophils (%) (Auto) 86 % (31-73) Lymphocytes (%) (Auto) 5 % (24-48) Monocytes (%) (Auto) 10 % (0-9) Eosinophils (%) (Auto) 0 % (0-3) Basophils (%) (Auto) 0 % (0-3) Neutrophils # (Auto) 6.2 x10^3/uL (1.8-7.7) Lymphocytes # (Auto) 0.3 x10^3/uL (1.0-4.8) Monocytes # (Auto) 0.7 x10^3/uL (0.0-1.1) Eosinophils # (Auto) 0.0 x10^3/uL (0.0-0.7) Basophils # (Auto) 0.0 x10^3/uL (0.0-0.2) Segmented Neutrophils % 93 % (35-66) Lymphocytes % 2 % (24-48) Atypical Lymphocytes % (Manual) 2 % (0-0) Monocytes % 3 % (0-10) Platelet Estimate Decreased (ADEQUATE) Large Platelets Occ Sodium Level 138 mmol/L (136-145) Potassium Level 4.0 mmol/L (3.5-5.1) Chloride Level 97 mmol/L (98-107) Carbon Dioxide Level 39 mmol/L (21-32) Anion Gap 2 (6-14) Blood Urea Nitrogen 16 mg/dL (7-20) Creatinine 0.4 mg/dL (0.6-1.0) Estimated GFR (Cockcroft-Gault) 156.0 Glucose Level 98 mg/dL (70-99) Calcium Level 9.3 mg/dL (8.5-10.1) Medications Active Scripts Medications Dose Route/Sig Max Daily Dose Days Date Category Xanax (Alprazolam) 0.5 Mg Tablet 1 Tab PO PRN TID PRN 09/10/18 Reported Kya-C 1,000 Mg Tablet (Ascorbate Calcium/Bioflavonoid) 1 Each Tablet 1 Each PO DAILY 09/10/18 Reported Simvastatin 40 Mg Tablet 1 Tab PO QHS 09/10/18 Reported Toprol Xl (Metoprolol Succinate) 50 Mg Tab.er.24h 50 Mg PO BID 09/10/18 Reported Escitalopram Oxalate 5 Mg Tablet 5 Mg PO QHS 09/10/18 Reported Impression . IMPRESSION: 1. Mhyvc-du-ychpvrx hypercapnic hypoxemic respiratory failure. extubated 09/27 2. Acute exacerbation of chronic obstructive pulmonary disease. 3. Mild increased lung markings on chest x-ray compatible with venous congestion. h/o Diastolic dysfunction 4. Suspect secondary pulmonary hypertension. 5. Tobacco-dependent. 6. Hypertension. 7. Anxiety. 8. POSSIBLE PNEUMONIA CXR: IMPRESSION: 1. Lines and tubes described above. 2. Hazy opacity at the left lung base likely representing pleural effusion with adjacent airspace disease Plan . extubated 09/27 on canula BIPAP qhs speech eval , on PO diet steroids with taper d/w daughter DVT/GI PPX: PEPCID/Lovenox ok with dc home soon SANDRA MANZANO MD Sep 29, 2019 11:17
[2019-09-29] MEDS: amLODIPine BESYLATE 5 MG TABLET PO SCH (11:31)
[2019-09-29] MEDS: LOSARTAN POTASSIUM 50 MG TABLET. PO SCH (11:31)
--- NOTE | 2019-09-29 12:10 | PN ---
DATE: SUBJECTIVE: The patient is resting, slightly propped up in bed, in no apparent respiratory distress. She is awake, alert. She answered all my questions appropriately; however, the nursing staff and her seem to be under the impression that seemed to be confused. PHYSICAL EXAMINATION: GENERAL: When I examined her, she looked well and was clearly in no apparent respiratory distress. No pallor, jaundice, cyanosis or thyromegaly. No jugular venous distention. No lower limb edema. VITAL SIGNS: Her heart rate was 82, blood pressure 147/64, temperature was 98.4, respiratory rate was 22 and oxygen saturation was 91% on 3 liters of oxygen. HEAD, EYES, EARS, NOSE AND THROAT: Showed normocephalic, atraumatic. NECK: Supple. CARDIAC: Normal first and second heart sounds. No gallop, rub or murmur. CHEST: Clear to auscultation. No crepitation or rhonchi. ABDOMEN: Distended, soft, nontender. No guarding or rigidity. No organomegaly. All hernial orifice intact. Bowel sounds normal. NEUROLOGIC: She is awake, alert. All her cranial nerves intact. She moves extremities without difficulty. Her intake was 350, output was 1795. No lab works done this morning. LABORATORY DATA: As of yesterday, her white cell count was 7200, hemoglobin 15.5, hematocrit 49, MCV was 93 and platelet count of 115,000. Her chemistry showed a serum sodium 138, potassium 4, chloride 97, bicarbonate 39, anion gap of 2, BUN 16, creatinine 0.4, estimated GFR was 56 mL per minute. Her glucose was 98 and calcium was 9.3. ASSESSMENT: 1. Acute hypoxic hypercapnic respiratory failure, requiring intubation and mechanical ventilation. The patient was successfully extubated. 2. Chronic obstructive pulmonary disease exacerbation. 3. Restrictive lung disease due to kyphoscoliosis. 4. Hypertension. 5. Hypothyroidism. 6. Thrombocytopenia, resolved. Platelet has risen to 115,000 from 103 after we stopped her Lovenox. PLAN: To continue with IV Solu-Medrol. Continue with bronchodilator. Continue with all her other medications. We will repeat all her lab works. We will continue with physical and occupational therapy. MARILYN BURDEN MD DR: JUAN/jean claude JOB#: [id number] / [id number]
[2019-09-29] MEDS: ENOXAPARIN 40 MG/0.4 ML SYRINGE. SQ SCH (13:00)
--- NOTE | 2019-09-29 18:27 | NUR ---
Patient seemed a little confused this morning at the beginning of this global technical writer's shift. Patient was very concerned about this global technical writer getting her supper. Dr. Ritchie notified this morning. Throughout the day it seemed to have resolved but then again this evening around 1800 she seemed a little confused again. The patient's family has noticed confusion also & is of concern. Patient's bed alarm is on. Will continue to monitor.
[2019-09-29] MEDS: ATORVASTATIN CALCIUM 20 MG TABLET PO SCH (20:53)
[2019-09-29] MEDS: CITALOPRAM 20 MG TABLET. PO SCH (20:53)
[2019-09-29] MEDS: hydrALAZINE 20 MG/ML VIAL. IVP PRN ×2 (23:06)
[2019-09-30 03:20] VITALS: BP 105/57
[2019-09-30 04:26] LABS: HEMATOCRIT 48.8 % (36.0-47.0); HEMOGLOBIN 15.5 g/dL (12.0-15.5); RED BLOOD COUNT 5.32 x10^6/uL (3.50-5.40); RED CELL DISTRIBUTION WIDTH 16.1 % (11.5-14.5); WHITE BLOOD COUNT 5.2 x10^3/uL (4.0-11.0)
[2019-09-30 04:37] LABS: CALCIUM 9.1 mg/dL (8.5-10.1); CREATININE 0.8 mg/dL (0.6-1.0); GFR 70.1
[2019-09-30 07:00] VITALS: BP 122/58
--- NOTE | 2019-09-30 07:08 | NUR ---
Pt was very confused and somewhat combative at [phone] on 09/29. Dr. Ramirez pageleah for ativan, orders received.
[2019-09-30] MEDS: METOPROLOL TART IMMED RELEASE 50 MG TABLET. PO SCH ×2 (08:56→21:55)
[2019-09-30] MEDS: ASCORBIC ACID 500 MG TABLET PO SCH (08:56)
[2019-09-30] MEDS: methylPREDNISolone SOD SUCC PF 125 MG/2 ML VIAL. IV SCH ×2 (08:59→21:54)
[2019-09-30] MEDS: FAMOTIDINE 20 MG/2 ML VIAL IVP SCH (09:00)
[2019-09-30] MEDS: ALBUTEROL SULFATE 2.5 MG/3 ML NEBU. NEB SCH ×4 (09:15→17:46)
--- NOTE | 2019-09-30 09:40 | PDOC ---
PULMONARY PROGRESS NOTES Subjective extubated 09/27 daughter reports confusion, noticed she is on IV ativan prn she is AO X3 used BIPAP last night 5 hrs Vitals Vital Signs Date Time Temp Pulse Resp B/P (MAP) Pulse Ox O2 Delivery O2 Flow Rate FiO2 09/30/19 09:17 97 Nasal Cannula 3.0 09/30/19 08:56 92 107/52 09/30/19 07:00 99.0 16 99.0 Comments intubated General: Alert, No acute distress Lungs: Clear Cardiovascular: S1, S2 Abdomen: Soft Neuro Exam: Alert Extremities: No Edema Skin: Warm, Dry Labs Laboratory Tests Test 09/30/19 03:45 White Blood Count 5.2 x10^3/uL (4.0-11.0) Red Blood Count 5.32 x10^6/uL (3.50-5.40) Hemoglobin 15.5 g/dL (12.0-15.5) Hematocrit 48.8 % (36.0-47.0) Mean Corpuscular Volume 92 fL (79-100) Mean Corpuscular Hemoglobin 29 pg (25-35) Mean Corpuscular Hemoglobin Concent 32 g/dL (31-37) Red Cell Distribution Width 16.1 % (11.5-14.5) Platelet Count 136 x10^3/uL (140-400) Sodium Level 136 mmol/L (136-145) Potassium Level 4.0 mmol/L (3.5-5.1) Chloride Level 95 mmol/L (98-107) Carbon Dioxide Level 42 mmol/L (21-32) Anion Gap -1 (6-14) Blood Urea Nitrogen 23 mg/dL (7-20) Creatinine 0.8 mg/dL (0.6-1.0) Estimated GFR (Cockcroft-Gault) 70.1 Glucose Level 123 mg/dL (70-99) Calcium Level 9.1 mg/dL (8.5-10.1) Laboratory Tests Test 09/30/19 03:45 White Blood Count 5.2 x10^3/uL (4.0-11.0) Red Blood Count 5.32 x10^6/uL (3.50-5.40) Hemoglobin 15.5 g/dL (12.0-15.5) Hematocrit 48.8 % (36.0-47.0) Mean Corpuscular Volume 92 fL (79-100) Mean Corpuscular Hemoglobin 29 pg (25-35) Mean Corpuscular Hemoglobin Concent 32 g/dL (31-37) Red Cell Distribution Width 16.1 % (11.5-14.5) Platelet Count 136 x10^3/uL (140-400) Sodium Level 136 mmol/L (136-145) Potassium Level 4.0 mmol/L (3.5-5.1) Chloride Level 95 mmol/L (98-107) Carbon Dioxide Level 42 mmol/L (21-32) Anion Gap -1 (6-14) Blood Urea Nitrogen 23 mg/dL (7-20) Creatinine 0.8 mg/dL (0.6-1.0) Estimated GFR (Cockcroft-Gault) 70.1 Glucose Level 123 mg/dL (70-99) Calcium Level 9.1 mg/dL (8.5-10.1) Medications Active Scripts Medications Dose Route/Sig Max Daily Dose Days Date Category Xanax (Alprazolam) 0.5 Mg Tablet 1 Tab PO PRN TID PRN 09/10/18 Reported Kya-C 1,000 Mg Tablet (Ascorbate Calcium/Bioflavonoid) 1 Each Tablet 1 Each PO DAILY 09/10/18 Reported Simvastatin 40 Mg Tablet 1 Tab PO QHS 09/10/18 Reported Toprol Xl (Metoprolol Succinate) 50 Mg Tab.er.24h 50 Mg PO BID 09/10/18 Reported Escitalopram Oxalate 5 Mg Tablet 5 Mg PO QHS 09/10/18 Reported Impression . IMPRESSION: 1. Zlpej-wr-vaxvamk hypercapnic hypoxemic respiratory failure. extubated 09/27 2. Acute exacerbation of chronic obstructive pulmonary disease. 3. Mild increased lung markings on chest x-ray compatible with venous congestion. h/o Diastolic dysfunction 4. Suspect secondary pulmonary hypertension. 5. Tobacco-dependent. 6. Hypertension. 7. Anxiety. 8. POSSIBLE PNEUMONIA 9. Confusion, likely related to IV ativan, will do ABG CXR: IMPRESSION: 1. Lines and tubes described above. 2. Hazy opacity at the left lung base likely representing pleural effusion with adjacent airspace disease Plan . extubated 09/27 on canula ABG today dc IV ativan BIPAP qhs speech eval , on PO diet steroids with taper d/w daughter DVT/GI PPX: PEPCID/Lovenox SANDRA MANZANO MD Sep 30, 2019 09:40
[2019-09-30] MEDS: hydroCHLOROthiazide 12.5 MG CAPSULE PO SCH (11:00)
[2019-09-30 11:01] VITALS: BP 108/53
[2019-09-30] MEDS: amLODIPine BESYLATE 5 MG TABLET PO SCH (12:46)
[2019-09-30] MEDS: LOSARTAN POTASSIUM 50 MG TABLET. PO SCH (12:46)
[2019-09-30] MEDS: ENOXAPARIN 40 MG/0.4 ML SYRINGE. SQ SCH (12:47)
--- NOTE | 2019-09-30 13:19 | PN ---
DATE: 09/30/2019 SUBJECTIVE: The patient is a 73-year-old female patient who was admitted with vbtno-ax-bfxkedb hypoxic hypercapnic respiratory failure. She apparently has been confused last night and has received 1 mg of IV Ativan last night and apparently she has been restless, agitated, attempting to get out of the bed; however, when I saw her this morning, she was awake, alert, responding appropriately. She did use BiPAP last night for 5 hours. The nursing staff stated that when they saw her earlier, she was alert, oriented to time, place and person; however, she has episodes of confusion as she sees spiders on the bob. PHYSICAL EXAMINATION: GENERAL: When I examined her, she looked well and was clearly in no apparent respiratory distress. No pallor, jaundice, cyanosis or thyromegaly. No jugular venous distention. No limb edema. VITAL SIGNS: Her heart rate was 92, blood pressure was 107/52, temperature was 99, respiratory rate was 16, and oxygen saturation was 97% on 3 liters of oxygen. HEAD, EYES, EARS, NOSE AND THROAT: Showed normocephalic, atraumatic. NECK: Supple. HEART: Showed normal first and second heart sounds. No gallop or murmur. CHEST: Shows central trachea, equally reduced expansion, reduced air entry, vesicular sounds. I could not really appreciate any crepitation or rhonchi. ____ diameter. She has a barrel chest with marked kyphoscoliosis. ABDOMEN: Slightly distended, soft, nontender. NEUROLOGIC: She is awake, alert, oriented to time, place and person, although she has episodes of confusion. All her cranial nerves intact. She moves extremities without difficulty. Her intake over the last 24 hours was 650, output was 2000. LABORATORY DATA: Her lab work this morning showed a white cell count 5200, hemoglobin 15.5, hematocrit 49, MCV 92, and platelet count of 136,000. Her chemistry showed a serum sodium 136, potassium 4, chloride 95, bicarbonate 42, anion gap of -1, estimated GFR was 23 mL per minute. Her creatinine was 0.8, estimated GFR was 70 mL per minute. Her glucose 123, calcium was 9.1. Her blood gases are still pending at the time of this dictation. Her prothrombin time, INR and aPTT and D-dimer are all normal. Toxic screen was negative and heparin-induced antibody was sent with the results are still pending at the time of this dictation. ASSESSMENT AND PLAN: 1. Acute hypoxic hypercapnic respiratory failure, requiring intubation and mechanical ventilation. The patient was successfully extubated. 2. Chronic obstructive pulmonary disease exacerbation. 3. Restrictive lung disease due to kyphoscoliosis. 4. Hypertension. 5. Hypothyroidism. 6. Thrombocytopenia that has resolved. Her platelet is up to 136,000 and confusion likely due to delirium. We will discontinue her Ativan and will repeat her blood gas this morning. I will ask physical and occupational therapist to work with her and if she remains stable, we will discharge her to [facility]. MARILYN BURDEN MD DR: JUAN/jean claude JOB#: [id number] / [id number]
--- NOTE | 2019-09-30 14:16 | NUR ---
SW following pt for dc planning. Chart reviewed and discussed with RN. SW spoke with pt and pt's daughter, Eve, phone: [phone] about SNU. Pt chose [facility]. KATIE phoned and faxed referral: [phone], fax: [phone]. pt acceptance pending. KATIE notified Ivonne at [facility], pt will need Bipap at night and provided with Setting.
[2019-09-30 15:15] VITALS: BP 116/55
--- NOTE | 2019-09-30 15:52 | NUR ---
Pt has been accepted at [facility] and facility will have a bed available upon dc. RN notified and left a VM to pt's daughter regarding acceptance.
[2019-09-30 19:55] VITALS: BP 115/56
[2019-09-30] MEDS: ATORVASTATIN CALCIUM 20 MG TABLET PO SCH (21:54)
[2019-09-30] MEDS: CITALOPRAM 20 MG TABLET. PO SCH (21:55)
--- NOTE | 2019-09-30 22:14 | NUR ---
Pt on bipap at shift change, and came off bipap at her request at 2230 and is on 3LNC
[2019-09-30 22:33] VITALS: BP 121/64
[2019-10-01 02:15] VITALS: BP 102/52
[2019-10-01 07:00] VITALS: BP 116/59
[2019-10-01] MEDS: ALBUTEROL SULFATE 2.5 MG/3 ML NEBU. NEB SCH ×3 (07:22→15:52)
[2019-10-01] MEDS: amLODIPine BESYLATE 5 MG TABLET PO SCH (08:47)
[2019-10-01] MEDS: LOSARTAN POTASSIUM 50 MG TABLET. PO SCH (08:47)
[2019-10-01] MEDS: methylPREDNISolone SOD SUCC PF 125 MG/2 ML VIAL. IV SCH (08:48)
[2019-10-01] MEDS: hydroCHLOROthiazide 12.5 MG CAPSULE PO SCH (08:48)
[2019-10-01] MEDS: METOPROLOL TART IMMED RELEASE 50 MG TABLET. PO SCH (08:48)
[2019-10-01] MEDS: ASCORBIC ACID 500 MG TABLET PO SCH (08:48)
[2019-10-01 08:56] LABS: BASE EXCESS ABG 9 mmol/L (-3-3); HCO3 ABG 36 mmol/L (21-28); PCO2 ABG 57 mmHg (35-46); PO2 ABG 75 mmHg (65-108); SAT O2 ABG 94 % (92-99)
[2019-10-01] MEDS: FAMOTIDINE 20 MG/2 ML VIAL IVP SCH (09:57)
--- NOTE | 2019-10-01 10:13 | PDOC ---
PULMONARY PROGRESS NOTES Subjective extubated 09/27 nursing and family report no overnight events and no more confusion reports she wore BIPAP overnight, remains on N/C during the day. Denies SOB or cough Vitals Vital Signs Date Time Temp Pulse Resp B/P (MAP) Pulse Ox O2 Delivery O2 Flow Rate FiO2 10/01/19 08:48 97 10/01/19 08:47 116/59 10/01/19 07:25 98 Nasal Cannula 2.5 10/01/19 07:00 98.6 20 98.6 ROS: No Nausea, No Chest Pain, No Abdominal Pain, No Increase Cough General: Alert, No acute distress Lungs: Clear Cardiovascular: S1, S2 Abdomen: Soft Neuro Exam: Alert Extremities: No Edema Skin: Warm, Dry Labs Laboratory Tests Test 09/30/19 03:45 09/30/19 10:30 White Blood Count 5.2 x10^3/uL (4.0-11.0) Red Blood Count 5.32 x10^6/uL (3.50-5.40) Hemoglobin 15.5 g/dL (12.0-15.5) Hematocrit 48.8 % (36.0-47.0) Mean Corpuscular Volume 92 fL (79-100) Mean Corpuscular Hemoglobin 29 pg (25-35) Mean Corpuscular Hemoglobin Concent 32 g/dL (31-37) Red Cell Distribution Width 16.1 % (11.5-14.5) Platelet Count 136 x10^3/uL (140-400) Sodium Level 136 mmol/L (136-145) Potassium Level 4.0 mmol/L (3.5-5.1) Chloride Level 95 mmol/L (98-107) Carbon Dioxide Level 42 mmol/L (21-32) Anion Gap -1 (6-14) Blood Urea Nitrogen 23 mg/dL (7-20) Creatinine 0.8 mg/dL (0.6-1.0) Estimated GFR (Cockcroft-Gault) 70.1 Glucose Level 123 mg/dL (70-99) Calcium Level 9.1 mg/dL (8.5-10.1) O2 Saturation 94 % (92-99) Arterial Blood pH 7.41 (7.35-7.45) Arterial Blood pCO2 at Patient Temp 57 mmHg (35-46) Arterial Blood pO2 at Patient Temp 75 mmHg (65-108) Arterial Blood HCO3 36 mmol/L (21-28) Arterial Blood Base Excess 9 mmol/L (-3-3) Laboratory Tests Test 09/30/19 10:30 O2 Saturation 94 % (92-99) Arterial Blood pH 7.41 (7.35-7.45) Arterial Blood pCO2 at Patient Temp 57 mmHg (35-46) Arterial Blood pO2 at Patient Temp 75 mmHg (65-108) Arterial Blood HCO3 36 mmol/L (21-28) Arterial Blood Base Excess 9 mmol/L (-3-3) Medications Active Scripts Medications Dose Route/Sig Max Daily Dose Days Date Category Xanax (Alprazolam) 0.5 Mg Tablet 1 Tab PO PRN TID PRN 09/10/18 Reported Kya-C 1,000 Mg Tablet (Ascorbate Calcium/Bioflavonoid) 1 Each Tablet 1 Each PO DAILY 09/10/18 Reported Simvastatin 40 Mg Tablet 1 Tab PO QHS 09/10/18 Reported Toprol Xl (Metoprolol Succinate) 50 Mg Tab.er.24h 50 Mg PO BID 09/10/18 Reported Escitalopram Oxalate 5 Mg Tablet 5 Mg PO QHS 09/10/18 Reported Impression . IMPRESSION: 1. Lvmkz-ss-yohmskb hypercapnic hypoxemic respiratory failure. extubated 09/27 2. Acute exacerbation of chronic obstructive pulmonary disease. 3. Mild increased lung markings on chest x-ray compatible with venous congestion. h/o Diastolic dysfunction 4. Suspect secondary pulmonary hypertension. 5. Tobacco-dependent. 6. Hypertension. 7. Anxiety. 8. POSSIBLE PNEUMONIA 9. Confusion-resolved Plan . Extubated 09/27, cont. supplemental oxygen and BIPAP at [facility] Plan to D/C to SNF steroids with taper D/W RN DVT/GI PPX: PEPCID/Lovenox ok with dc to SANDRA Monahan MD Oct 01, 2019 10:13
[2019-10-01 11:00] VITALS: BP 121/58
[2019-10-01] MEDS ORDERED: IPRA3AMP29 NEB (12:17)
[2019-10-01] MEDS ORDERED: PRED20TA PO (12:17)
--- NOTE | 2019-10-01 12:20 | SNU/HH DC ---
DISCHARGE ORDERS DISCHARGE INFORMATION: DISCHARGE DATE: Oct 01, 2019 FINAL DIAGNOSIS A/C Hypoxic respiratory failure COPD EXacerbation CONDITION ON DISCHARGE: Stable CODE STATUS: Code Status: Full ASSISTED: SNF STAY <30 DAYS: Yes POST DISCHARGE ORDERS: ACTIVITY ORDERS: Resume previous activity, Other ROM activity WEIGHT BEARING STATUS: Full weight bearing, Non weight bearing BATHING ORDERS: Shower-keep dressing dry DIET AFTER DISCHARGE: Cardiac WOUND/INCISION CARE: Ice to area for comfort, Keep wound/cast CDI, Keep wound elevated TREATMENT/EQUIPMENT ORDERS: RESPIRATORY EQUIPMENT NEEDED: Oxygen, Nebulizer Physical Therapy For: Evalulation/Treatment Occupational Therapy For: Evaluation/Treatment DISCHARGE MEDICATIONS: Home Meds Active Scripts Prednisone (PREDNISONE) 20 Mg Tablet, 1 TAB PO DAILY for copd exac for 15 Days, #15 TAB Prov:MARILYN BURDEN MD 10/01/19 Ipratropium/Albuterol Sulfate (DUONEB 0.5-3(2.5) MG/3 ML) 3 Ml Ampul.neb, 3 ML NEB QID for copd for 30 Days, #120 EACH Prov:MARILYN BURDEN MD 10/01/19 Reported Medications Amlodipine Besylate (AMLODIPINE BESYLATE) 5 Mg Tablet, 5 MG PO DAILY for HTN , TAB 09/23/19 Valsartan/Hydrochlorothiazide (DIOVAN HCT 320-12.5 MG TAB) 1 Each Tablet, 1 TAB PO DAILY for HTN, #90 TAB 1 Refill 09/23/19 Escitalopram Oxalate (Escitalopram Oxalate) 5 Mg Tablet, 20 MG PO HS PRN for ANXIETY / AGITATION, TAB 09/23/19 Metoprolol Succinate (TOPROL XL) 100 Mg Tab.er.24h, 1 TAB PO BID for HTN for 30 Days, #60 TAB 0 Refills 09/23/19 Ascorbate Calcium/Bioflavonoid (GERBER-C 1,000 MG TABLET) 1 Each Tablet, 1 EACH PO DAILY for VIT C SUPPLEMENT, TAB 09/10/18 Simvastatin (SIMVASTATIN) 40 Mg Tablet, 1 TAB PO QHS for HIGH CHOLESTEROL, #30 TAB 5 Refills 09/10/18 MARILYN BURDEN MD Oct 01, 2019 12:20
[2019-10-01] MEDS: ENOXAPARIN 40 MG/0.4 ML SYRINGE. SQ SCH (13:00)
--- NOTE | 2019-10-01 13:36 | SNU/HH DC ---
DISCHARGE ORDERS DISCHARGE INFORMATION: DISCHARGE DATE: Oct 01, 2019 CONDITION ON DISCHARGE: Stable CODE STATUS: Code Status: Full POST DISCHARGE ORDERS: ACTIVITY ORDERS: Resume previous activity, Other ROM activity WEIGHT BEARING STATUS: Full weight bearing, Non weight bearing BATHING ORDERS: Shower-keep dressing dry DIET AFTER DISCHARGE: Cardiac WOUND/INCISION CARE: Ice to area for comfort, Keep wound/cast CDI, Keep wound elevated, No wound care needed TREATMENT/EQUIPMENT ORDERS: RESPIRATORY EQUIPMENT NEEDED: Oxygen, Nebulizer, BiPAP Physical Therapy For: Evalulation/Treatment Occupational Therapy For: Evaluation/Treatment DISCHARGE MEDICATIONS: Home Meds Active Scripts Prednisone (PREDNISONE) 20 Mg Tablet, 1 TAB PO DAILY for copd exac for 15 Days, #15 TAB Prov:MARILYN BURDEN MD 10/01/19 Ipratropium/Albuterol Sulfate (DUONEB 0.5-3(2.5) MG/3 ML) 3 Ml Ampul.neb, 3 ML NEB QID for copd for 30 Days, #120 EACH Prov:MARILYN BURDEN MD 10/01/19 Reported Medications Amlodipine Besylate (AMLODIPINE BESYLATE) 5 Mg Tablet, 5 MG PO DAILY for HTN , TAB 09/23/19 Valsartan/Hydrochlorothiazide (DIOVAN HCT 320-12.5 MG TAB) 1 Each Tablet, 1 TAB PO DAILY for HTN, #90 TAB 1 Refill 09/23/19 Escitalopram Oxalate (Escitalopram Oxalate) 5 Mg Tablet, 20 MG PO HS PRN for ANXIETY / AGITATION, TAB 09/23/19 Metoprolol Succinate (TOPROL XL) 100 Mg Tab.er.24h, 1 TAB PO BID for HTN for 30 Days, #60 TAB 0 Refills 09/23/19 Ascorbate Calcium/Bioflavonoid (GERBER-C 1,000 MG TABLET) 1 Each Tablet, 1 EACH PO DAILY for VIT C SUPPLEMENT, TAB 09/10/18 Simvastatin (SIMVASTATIN) 40 Mg Tablet, 1 TAB PO QHS for HIGH CHOLESTEROL, #30 TAB 5 Refills 09/10/18 MARILYN BURDEN MD Oct 01, 2019 13:36
[2019-10-01 15:00] VITALS: BP 117/67
--- NOTE | 2019-10-01 16:31 | NUR ---
corrected Orders faxed to [facility] (extensive time spent regarding this). SW arranged transport via central transport at 1745 as [facility] is not able to transport pt today. Discussed with Ivonne at [facility] and Pt's daughter notified.
--- NOTE | 2019-10-01 16:56 | NUR ---
Discharge Note: [facility] Discharge instructions and discharge home medications reviewed with Other facility and a copy given. All questions have been answered and understanding verbalized. The following instructions and handouts were given: DISCHARGE PACKET, SWALLOW PRECATUIONS, DISCHARGE MEDICATION LIST Discontinued lines and drains: IV DISCONTINUED, DRESSING CLEAN, DRY AND intact. Patient discharged to [facility] with TRANSPORTATION STAFF via [facility]
[2019-10-01] MEDS ORDERED: methylPREDNISolone SOD SUCC PF 125 MG/2 ML VIAL. IV SCH (21:00)
== END 2019-10-01 16:50 | DRG 208 ==
LOC: 6 SOUTH 12:48 → 1 WEST ICU 09-24 00:02 → 2 SOUTH 09-28 15:15
PROVIDERS: ADMIT Internal Medicine; ATTEND Internal Medicine
PROC: 5A09357 Assistance with Respiratory Ventilation, Less than 24 Consecutive Hours, Continuous Positive Airway Pressure (ICD-10-PCS; 2019-09-23)
PROC: 5A1945Z Respiratory Ventilation, 24-96 Consecutive Hours (ICD-10-PCS; principal; 2019-09-24)
PROC: 0BH17EZ Insertion of Endotracheal Airway into Trachea, Via Natural or Artificial Opening (ICD-10-PCS; 2019-09-24)
PROC: 5A09357 Assistance with Respiratory Ventilation, Less than 24 Consecutive Hours, Continuous Positive Airway Pressure (ICD-10-PCS; 2019-09-27)
PROC: 5A09357 Assistance with Respiratory Ventilation, Less than 24 Consecutive Hours, Continuous Positive Airway Pressure (ICD-10-PCS; 2019-09-28)
PROC: 5A09357 Assistance with Respiratory Ventilation, Less than 24 Consecutive Hours, Continuous Positive Airway Pressure (ICD-10-PCS; 2019-09-29)
PROC: 5A09357 Assistance with Respiratory Ventilation, Less than 24 Consecutive Hours, Continuous Positive Airway Pressure (ICD-10-PCS; 2019-09-30)
PROC: 5A09357 Assistance with Respiratory Ventilation, Less than 24 Consecutive Hours, Continuous Positive Airway Pressure (ICD-10-PCS; 2019-10-01)
DX: J96.22 Acute and chronic respiratory failure with hypercapnia (principal); J18.9 Pneumonia, unspecified organism; I10 Essential (primary) hypertension; E03.9 Hypothyroidism, unspecified; M81.0 Age-related osteoporosis without current pathological fracture; M19.90 Unspecified osteoarthritis, unspecified site; M41.9 Scoliosis, unspecified; J43.9 Emphysema, unspecified; F17.200 Nicotine dependence, unspecified, uncomplicated; F41.9 Anxiety disorder, unspecified; J96.21 Acute and chronic respiratory failure with hypoxia; J98.4 Other disorders of lung; I87.8 Other specified disorders of veins; D69.6 Thrombocytopenia, unspecified; I27.20 Pulmonary hypertension, unspecified; Z88.6 Allergy status to analgesic agent; Z79.01 Long term (current) use of anticoagulants
CPT/HCPCS: 36415; 36600; 71045; 71275; 80048; 80053; 80307; 82805; 82962; 83605; 83735; 84145; 84436; 84439; 84443; 84480; 84484; 85007; 85025; 85027; 85379; 85610; 85730; 86022; 93306; 94002; 94003; 94640; 94660; 94760; J0360; J1650; J1940; J2060; J2250; J2704; J2930; J3010; J3490; J7030; J7040; J7613; P9041; Q9967; 92526; 92610; 97530; G0378

== ENCOUNTER → 2019-10-25 | Outpatient (CLI) | payer MEDICARE, BC ==
[2019-10-01 15:00] VITALS: BP 117/67
[~2019-10-25] MED LIST changes: +AMLO5TAB10 PO; +IPRA3AMP29 NEB; +METO100T5 PO; +PRED20TA PO; +VALS1TAB18 PO
--- NOTE | 2019-10-26 12:40 | SLEEP ---
DATE OF STUDY: 10/25/2019 SLEEP STUDY ATTENDING PHYSICIAN: Kevin Ritchie MD The patient is a 73-year-old who weighs 118 pounds with a BMI of 23. The patient's Harwood score was 7. The patient underwent sleep study at [facility]. The patient uses oxygen 2 liters at home continuously. This study was performed on room air. During the night study, the patient spent 442 minutes in bed and slept for 373 minutes with a sleep efficiency of 84%. Sleep latency was 12 minutes with a REM latency of 120 minutes. Sleep architecture showed normal stage 1 and stage 2 sleep, increased slow wave and increased REM sleep. During the initial diagnostic portion of the study, the patient slept for 64 minutes. During that time, there were 3 obstructive apneas, 1 mixed apnea, no central apneas and 36 hypopneas. The patient's AHI was 38 per hour. Supine sleep was not observed and REM sleep was not observed during the diagnostic portion. EKG monitoring revealed an average heart rate of 85 beats per minute, no sustained arrhythmias observed. PLMS were seen at index of 14 per hour and 1 per hour caused EEG arousals. Nocturnal oximetry study revealed an average oxygen saturation of an 81% with the lowest of 59%. 72% of time oxygen saturation remained between 80% and 89% and 11% of time between 60% and 69%. The patient met the criteria for CPAP initiation. Due to patient comfort, it was switched to BiPAP at a pressure of 12/7. The patient could not breathe while on CPAP. The BiPAP pressure was increased up to 18/12. At that final pressure, the patient slept for 94 minutes. The patient had supine as well as REM sleep. The patient's AHI was reduced to 3 per hour. However, oxygen saturations remained in the mid to high 80s, especially during REM sleep. The patient normally uses oxygen 2 liters at night. The patient would benefit from 1 liter of oxygen at nighttime with the BiPAP. The patient used a small size full face mask. IMPRESSION: 1. Severe sleep apnea-hypopnea syndrome at an AHI of 38 per hour. 2. Nocturnal hypoxia secondary to combination of sleep apnea and hypoventilation. Hypoxia persisted despite elimination of respiratory events and she would benefit from oxygen 1 liter with BiPAP. 3. Mild PLMS. RECOMMENDATIONS: 1. BiPAP at 18/12 with 1 liter of oxygen should be used on a nightly basis. 2. Follow up in 4-6 weeks to assess compliance with BiPAP and to document clinical improvement. 3. Avoid [employer] depressants. 4. Cautioned regarding driving until symptoms of sleep apnea resolved with the use of BiPAP. SANDRA MANZANO MD DR: DOROTYH/jean claude JOB#: [id number] / [id number] KEVIN May MD
== END | disposition home or self-care (01) ==
LOC: SLPLAB 18:41
PROVIDERS: ATTEND Internal Medicine
DX: G47.33 Obstructive sleep apnea (adult) (pediatric) (principal); G47.34 Idiopathic sleep related nonobstructive alveolar hypoventilation
CPT/HCPCS: 95810